=== PATIENT | male | born 1950 | race Caucasian/White ===

== ENCOUNTER 2017-09-28 18:29 | Emergency (ER) | payer MEDICARE, BC ==
[~2017-09-28] VITALS: Ht 180.3 cm; Wt 109.1 kg
[2017-09-28 18:36] VITALS: TEMP 98.2
[2017-09-28 18:43] LABS: BASO # 0.1 (0.0-0.2); BASO % 0.5 % (0.0-2.0); EOS # 0.8 (0.0-0.7); EOS % 7.5 % (0-4.0); GRAN # 5.2 (1.4-6.5); GRAN % 51.4 % (42.2-75.2); HEMATOCRIT 39.4 % (42.0-52.0); HEMOGLOBIN 13.5 g/dl (13.5-18.0); LYMPH % 30.2 % (20.0-51.0); MEAN CELL VOLUME 83 fl (80.0-100.0); MEAN CORPUSCULAR HEMOGLOBIN 28 pg (27.0-31.0); MEAN CORPUSCULAR HGB CONC 34 g/dl (33.0-37.0); MEAN PLATELET VOLUME 10.2 fl (7.4-10.4); MONO # 0.9 (0.1-0.6); PLATELET COUNT 150 K/mm3 (130-400); RED BLOOD COUNT 4.76 M/mm3 (4.20-5.60)
[2017-09-28 18:54] LABS: ADJUSTED CALCIUM 9.6 mg/dL (8.4-10.2); BILIRUBIN,TOTAL 0.4 mg/dL (0.0-1.0); CALCIUM 9.6 mg/dL (8.4-10.2); CREATININE, serum 0.9 mg/dL (0.66-1.25); PARTIAL THROMBOPLASTIN TIME 25.9 SECONDS (26.0-37.0); POTASSIUM 4.2 mmol/L (3.4-5.0); TOTAL PROTEIN 7.1 gm/dL (6.4-8.2)
[2017-09-28 19:06] LABS: TROPONIN-I 0.16 ng/mL (0.000-0.034)
[2017-09-28 20:40] VITALS: BP 169/103; PULSE 97
== END 2017-09-28 20:35 | disposition short-term general hospital (02) ==
LOC: COL.ER 18:29
PROVIDERS: Emergency Medicine
DX: R79.1 Abnormal coagulation profile (principal); R55 Syncope and collapse; I25.10 Atherosclerotic heart disease of native coronary artery without angina pectoris; I25.2 Old myocardial infarction; E11.9 Type 2 diabetes mellitus without complications; F17.220 Nicotine dependence, chewing tobacco, uncomplicated; Z87.891 Personal history of nicotine dependence; Z95.5 Presence of coronary angioplasty implant and graft
CPT/HCPCS: J2270

== ENCOUNTER 2018-01-18 14:47 | Outpatient (RCR) | payer MEDICARE, BC | END 2018-01-22 | disposition home or self-care (01) | LOC: COL.CR | DX: Z48.812 Encounter for surgical aftercare following surgery on the circulatory system (principal); Z95.5 Presence of coronary angioplasty implant and graft ==

== ENCOUNTER 2018-01-30 14:06 | Outpatient (RCR) | payer MEDICARE, BC | END 2018-02-04 08:40 | disposition home or self-care (01) | LOC: COL.CR 14:06 | DX: Z48.812 Encounter for surgical aftercare following surgery on the circulatory system (principal); Z95.1 Presence of aortocoronary bypass graft ==

== ENCOUNTER 2018-06-05 14:25 | Outpatient (RCR) | payer SELFPAY | END 2018-06-09 | disposition home or self-care (01) | LOC: COL.CR | DX: Z02.9 Encounter for administrative examinations, unspecified (principal) ==

== ENCOUNTER 2018-07-22 13:24 | Outpatient (RCR) | payer SELFPAY | END 2018-09-10 | disposition home or self-care (01) | LOC: COL.CR | DX: Z02.89 Encounter for other administrative examinations (principal) ==

== ENCOUNTER 2019-12-25 13:23 | Emergency (ER) | payer MEDICARE, BC ==
[~2019-12-25] VITALS: Ht 182.9 cm; Wt 118.2 kg
[2019-12-25 13:44] VITALS: TEMP 97.9
[2019-12-25] MEDS ORDERED: CEPHALEXIN500 M1 PO (16:08)
[2019-12-25 16:20] VITALS: BP 150/96; PULSE 76
== END 2019-12-25 16:20 | disposition home or self-care (01) ==
LOC: COL.ER 13:23
DX: S81.811A Laceration without foreign body, right lower leg, initial encounter (principal); I25.10 Atherosclerotic heart disease of native coronary artery without angina pectoris; E11.40 Type 2 diabetes mellitus with diabetic neuropathy, unspecified; F17.210 Nicotine dependence, cigarettes, uncomplicated; Z95.9 Presence of cardiac and vascular implant and graft, unspecified; W26.8XXA Contact with other sharp object(s), not elsewhere classified, initial encounter; Y92.009 Unspecified place in unspecified non-institutional (private) residence as the place of occurrence of the external cause

== ENCOUNTER → 2020-06-17 | Outpatient (CLI) | payer MEDICARE, BC ==
[~2020-06-17] MED LIST: CEPHALEXIN500 M1 PO
== END ==
LOC: ZCOL.LAB 16:47
DX: L97.411 Non-pressure chronic ulcer of right heel and midfoot limited to breakdown of skin (principal)

== ENCOUNTER 2020-08-05 13:13 | Inpatient (IN) | payer MEDICARE, BC ==
[~2020-08-05] VITALS: Ht 182.9 cm; Wt 118.2 kg
[2020-08-05 14:14] LABS: MEAN CELL VOLUME 84 fl (80.0-100.0); MEAN CORPUSCULAR HEMOGLOBIN 29 pg (27.0-31.0); MEAN CORPUSCULAR HGB CONC 34 g/dl (33.0-37.0); MEAN PLATELET VOLUME 9.4 fl (7.4-10.4); PLATELET COUNT 289 K/mm3 (130-400); RED BLOOD COUNT 3.83 M/mm3 (4.20-5.60); REDCELL DISTRIBUTION WIDTH-CV 12.5 % (11.5-14.5)
[2020-08-05 14:20] LABS: HEMATOCRIT 32.2 % (42.0-52.0)
[2020-08-05 14:28] LABS: ALBUMIN 3.6 gm/dL (3.5-5.0); BILIRUBIN,TOTAL 0.6 mg/dL (0.0-1.0); CALCIUM 8.8 mg/dL (8.4-10.2); CREATININE, serum 1.54 (0.66-1.25); POTASSIUM 4.6 mmol/L (3.4-5.0); TOTAL PROTEIN 7.3 gm/dL (6.4-8.2)
[2020-08-05 14:45] LABS: ERYTHROCYTE SEDIMENTATION RATE 98 mm/hr (0-30)
[2020-08-05 14:50] LABS: C-REACTIVE PROTEIN 17.7 mg/dL (0.0-0.9)
[2020-08-05 14:55] LABS: BAND 1 % (0-10); LYMPHOCYTE 13 % (20.0-51.0); NEUTROPHILS 71 % (42.0-75.2)
[2020-08-05 14:56] LABS: PLATELET ESTIMATE NORMAL (NORMAL)
[2020-08-05] MEDS ORDERED: LASIX 20MG TABL20 MG PO (15:03)
[2020-08-05] MEDS ORDERED: NORCO 325 MG-51 TAB PO (15:04)
[2020-08-05] MEDS ORDERED: CIPRO 500MG TA500 MG PO ×2 (15:04→16:20)
[2020-08-05] MEDS ORDERED: GLUCOPHAGE500 MG/TAB PO (15:04)
[2020-08-05] MEDS ORDERED: TRULICITY0.75 MG/0. SQ (15:05)
[2020-08-05] MEDS ORDERED: LANTUS100 U/ML SQ (15:05)
[2020-08-05] MEDS ORDERED: LEXAPRO 10MG10 MG PO (15:06)
[2020-08-05] MEDS ORDERED: NEURONTIN300 MG/CAP PO (15:06)
[2020-08-05] MEDS ORDERED: MIRAPEX0.5 MG PO (15:07)
[2020-08-05] MEDS ORDERED: ACCUPRIL20TAB PO (15:07)
[2020-08-05] MEDS ORDERED: NOVOLOG 100U100 U/M1 SQ (15:07)
[2020-08-05] MEDS ORDERED: TOPROL XL 50MG50 MG PO (15:07)
[2020-08-05] MEDS ORDERED: ASPIRIN 32325 MG/TAB PO (15:17)
[2020-08-05] MEDS ORDERED: NITROSTAT0.4 MG/TAB SL (15:18)
[2020-08-05] MEDS ORDERED: IBU600 MG PO (15:19)
[2020-08-05] MEDS ORDERED: FISH OIL1000 MG PO (15:20)
--- NOTE | 2020-08-05 16:34 | NUR ---
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 Loading dose: 1.5 grams Maintenance dose: 1.5 grams every 12 hours Trough goal: 15-20 ug/mL
--- NOTE | 2020-08-05 17:12 | NUR ---
Patient arrived to the floor at this time. He is alert and oriented. No pain at this time. IV site is CD&I, abx from ER finishing at this time. Wound is not wrapped and is dripped red fluid at time of arrival. Ortho was able to see patient and wrap the wound. Patient is aware of his POC. Medication list was completed in the ER. Patient is aware to call for SB assist to the restroom as as a precaution due to the location of the wound on his foot. Will continue to monitor. Call light is in reach.
[2020-08-05 17:26] VITALS: BP 141/78; PULSE 82; TEMP 98.3
[2020-08-05 17:28] VITALS: BP 141/78; PULSE 82; TEMP 98.3
[2020-08-05 19:25] VITALS: BP 136/53; PULSE 77; TEMP 101.6
--- NOTE | 2020-08-05 20:00 | NUR ---
PATIENT DENIES ANY PAIN TO RIGHT FOOT, DENIES CHEST PAIN/SHORTNESS OF BREATH. IVF INFUSING WITH NO PROBLEMS.
--- NOTE | 2020-08-05 20:20 | NUR ---
RECEIVED CHANGE OF SHIFT REPORT FROM DAY SHIFT NURSEREJI. PATIENT RESTING IN BED WITH NO C/O REPORTED. IVF INFUSING WITH NO PROBLEMS.
[2020-08-05 21:32] VITALS: TEMP 99.8
--- NOTE | 2020-08-05 22:45 | NUR ---
PATIENT STATES HE TAKES HIS LEXAPRO AT [facility], SEE eMAR FOR MEDS GIVEN. PATIENT CALLED TO CLARIFY WHEN HE TAKES HIS LEXAPRO, CLARIFIED HE TAKES 1200MG GABAPENTIN AND STATES HE DOES NOT WANT TO TAKE [facility] SUB[facility] FOR HOME INSULIN- LANTUS. WANTS TO BRING IN LANTUS FOR PATIENT TO TAKE WHILE IN THE HOSPITAL, ALSO WANTS TO MAKE SURE PATIENT'S PAST CREAT LEVEL ARE MADE AVAILABLE TO HOSPITAL PROVIDERS SINCE PATIENT IS NOT TAKING ACCUPRIL. IVF INFUSING WITH NO PROBLEMS. DENIES C/O PAIN AT THIS TIME.
[2020-08-05 23:38] VITALS: BP 120/50; PULSE 72; TEMP 99.5
--- NOTE | 2020-08-06 03:27 | NUR ---
PATIENT REQUEST BENADRYL TO BE GIVEN PRIOR TO VANCOMYCIN IV MED. INFORMED DIOMEDES ABREU OF PATIENT'S REQUEST, PREVIOUS RESPONSE TO VANCO ADMIN IN ER (C/O ITCHING, NO RASH) WITH PROVIDER'S ORDERS FOR BENADRYL GIVEN AND RECOMMENDED THAT IV VANCO INFUSION BE CUT IN HALF FOR ADMIN RATE.
[2020-08-06 03:34] VITALS: BP 141/61; PULSE 75; TEMP 97.7
--- NOTE | 2020-08-06 07:06 | NUR ---
CHANGE OF SHIFT REPORT GIVEN TO DAY SHIFT NURSEREJI. PATIENT RESTING QUIETLY IN BED DURING REPORT.
[2020-08-06 07:12] LABS: HEMATOCRIT 31.7 % (42.0-52.0); HEMOGLOBIN 10.6 g/dl (13.5-18.0); MEAN CELL VOLUME 86 fl (80.0-100.0); MEAN CORPUSCULAR HEMOGLOBIN 29 pg (27.0-31.0); MEAN CORPUSCULAR HGB CONC 33 g/dl (33.0-37.0); MEAN PLATELET VOLUME 9.8 fl (7.4-10.4); PLATELET COUNT 292 K/mm3 (130-400); RED BLOOD COUNT 3.69 M/mm3 (4.20-5.60); REDCELL DISTRIBUTION WIDTH-CV 12.7 % (11.5-14.5)
[2020-08-06 07:26] LABS: CALCIUM 8.6 mg/dL (8.4-10.2); CREATININE, serum 1.36 (0.66-1.25); POTASSIUM 4.6 mmol/L (3.4-5.0)
[2020-08-06 07:38] VITALS: BP 143/56; PULSE 74; TEMP 98.5
[2020-08-06 07:52] LABS: BAND 1 % (0-10); EOSINOPHIL 2 % (0-4); LYMPHOCYTE 14 % (20.0-51.0); NEUTROPHILS 75 % (42.0-75.2); PLATELET ESTIMATE NORMAL (NORMAL)
[2020-08-06 07:53] LABS: HYPOCHROMIA 1+
--- NOTE | 2020-08-06 08:04 | NUR ---
Assessment complete. Patient sitting up in bed about to go down for MRI at this time. Denies pain or discomfort. States that he feels fine. He is aware of his POC at this time. IV site is CD&I, IV vanc paused for MRI at this time. Foot remains wrapped from ortho at this time, will replace dressing when he returns. No other needs were expressed at this time. Call light is in reach.
[2020-08-06 11:03] VITALS: BP 137/54; PULSE 73; TEMP 98
[2020-08-06 16:29] VITALS: BP 153/67; PULSE 71; TEMP 98.3
--- NOTE | 2020-08-06 17:52 | NUR ---
Patient was unhappy he was able to go home and does not like the recommendations he recieved from his ortho consult. He is aware of his POC and that the cultures will tell which abx he needs in order to be effective in treatment. was at the bedside most of the day. Minimal complaints from patient other than the food and his wishes to leave. IV site remains intact. Right heel wound was redressed, drainage saturated through to the ABD. NS flush was used to remove 4x4s from open wound. Pt tolerated well. No other needs. Call light is inr each.
[2020-08-06 19:01] VITALS: BP 150/50; PULSE 75; TEMP 98.4
--- NOTE | 2020-08-06 22:12 | NUR ---
Pt resting in bed, assessment completed. meds given per DEC. heart sounds are regular and normal, lung sounds are clear. pt denies pain, chest pain or shortness of breath. alert and oriented, independent in room. right heel wound is dressed, day shift nurse reported that dressing was changed late afternoon. no other needs at this time.
[2020-08-06 23:35] VITALS: BP 125/79; PULSE 75; TEMP 98.9
[2020-08-07 04:19] VITALS: BP 165/68; PULSE 70; TEMP 98.4
--- NOTE | 2020-08-07 05:33 | NUR ---
pt sleeping in bed most of the night, independent in room. pt denies any pain. right heel wound dressing stayed intact, not changed this shift due to being changed late in the day yesterday. no other needs at this time, will continue to monitor.
[2020-08-07 06:51] LABS: BASO % 0.3 % (0.0-2.0); EOS # 0.3 (0.0-0.7); EOS % 2.6 % (0-4.0); GRAN % 78.2 % (42.2-75.2); HEMOGLOBIN 10.6 g/dl (13.5-18.0); LYMPH # 1.2 (1.2-3.4); LYMPH % 9.5 % (20.0-51.0); MEAN CELL VOLUME 86 fl (80.0-100.0); MEAN CORPUSCULAR HEMOGLOBIN 28 pg (27.0-31.0); MEAN CORPUSCULAR HGB CONC 33 g/dl (33.0-37.0); MEAN PLATELET VOLUME 9.7 fl (7.4-10.4); MONO # 1.1 (0.1-0.6); MONO % 8.8 % (1.7-9.3); PLATELET COUNT 297 K/mm3 (130-400); RED BLOOD COUNT 3.73 M/mm3 (4.20-5.60); REDCELL DISTRIBUTION WIDTH-CV 12.7 % (11.5-14.5)
[2020-08-07 06:52] LABS: HEMATOCRIT 31.9 % (42.0-52.0)
[2020-08-07 06:56] LABS: CALCIUM 8.7 mg/dL (8.4-10.2); CREATININE, serum 1.12 (0.66-1.25); POTASSIUM 4.2 mmol/L (3.4-5.0)
--- NOTE | 2020-08-07 07:28 | NUR ---
PATIENT AWAKE IN BED. HE ASKED FOR WATER I INFORMED HIM THAT HE WAS NPO AND HE STATES NOTHING IS HAPPENING TODAY AND HE WANTS WATER.
[2020-08-07 08:49] VITALS: BP 143/80; PULSE 68; TEMP 98.2
--- NOTE | 2020-08-07 09:30 | NUR ---
PATIENT ASSESSMENT COMPLETED. HE IS SITTING UP AT THE SIDE OF THE BED WITH AT BEDSIDE. DENIES ANY PAIN. RIGHT FOOT DRESSING INTACT. NO DRAINAGE NOTED ON THE OUTSIDE OF DRESSING.
--- NOTE | 2020-08-07 10:30 | NUR ---
PATIENT IV WAS RESTARTED IN THE RIGHT FOREARM. TOLERATES WELL
--- NOTE | 2020-08-07 11:00 | NUR ---
DRESSING CHANGED BY DR. RENEE. MODERATE ABOUT OF BROWN DRAINAGE NOTED ON THE OLD DRESSING. ALONG BEDSIDE ALSO.
[2020-08-07 11:50] VITALS: BP 171/79; PULSE 65; TEMP 98.2
[2020-08-07 16:12] VITALS: BP 158/64; PULSE 69; TEMP 98.1
[2020-08-07 19:00] VITALS: BP 155/66; PULSE 71; TEMP 98.4
--- NOTE | 2020-08-07 21:26 | NUR ---
pt alert and oriented, sitting up in bed. assessment completed and medications given per DEC. pt refused wound dressing change tonight, states that he wants to leave it until the morning. pt denies pain, lung sounds are clear and heart sonds are regular. discoloration in both lower legs, edema noted in the right foot. no other needs at this time, will continue to monitor.
[2020-08-07 23:19] VITALS: BP 127/49; PULSE 70; TEMP 98.3
[2020-08-08 04:00] VITALS: BP 133/58; PULSE 68; TEMP 98.1
--- NOTE | 2020-08-08 05:49 | NUR ---
pt slept in bed most of the night, called for any needs. medications given per DEC, pt refused wound dressing change and stated that he wanted to leave it until the morning. no other needs at this time.
--- NOTE | 2020-08-08 06:52 | NUR ---
PATIENT SLEEPING IN BED. NO SIGNS OF DISTRESS NOTED
[2020-08-08 07:05] VITALS: BP 150/70; PULSE 65; TEMP 98.6
[2020-08-08 07:12] LABS: BASO # 0.1 (0.0-0.2); BASO % 0.4 % (0.0-2.0); EOS # 0.3 (0.0-0.7); EOS % 2.3 % (0-4.0); GRAN # 10.5 (1.4-6.5); GRAN % 75.4 % (42.2-75.2); HEMOGLOBIN 11.1 g/dl (13.5-18.0); LYMPH # 1.8 (1.2-3.4); LYMPH % 12.7 % (20.0-51.0); MEAN CELL VOLUME 85 fl (80.0-100.0); MEAN CORPUSCULAR HEMOGLOBIN 28 pg (27.0-31.0); MEAN CORPUSCULAR HGB CONC 33 g/dl (33.0-37.0); MEAN PLATELET VOLUME 9.9 fl (7.4-10.4); MONO # 1.2 (0.1-0.6); MONO % 8.6 % (1.7-9.3); PLATELET COUNT 343 K/mm3 (130-400); RED BLOOD COUNT 3.93 M/mm3 (4.20-5.60); REDCELL DISTRIBUTION WIDTH-CV 12.5 % (11.5-14.5)
[2020-08-08 07:15] LABS: HEMATOCRIT 33.2 % (42.0-52.0)
[2020-08-08 07:26] LABS: CALCIUM 8.9 mg/dL (8.4-10.2); CREATININE, serum 1.09 (0.66-1.25); POTASSIUM 4.3 mmol/L (3.4-5.0)
--- NOTE | 2020-08-08 08:54 | NUR ---
PATIENT ASSESSMENT COMPLETED. SITTING UP AT THE SIDE OF THE BED. BREAKFAST EATTEN. HE GIVES HIMSELF HIS INSULIN SHOTS PER HIS REQUEST. DENIES OTHER NEEDS OR REQUEST
[2020-08-08 11:29] VITALS: BP 151/77; PULSE 68; TEMP 98
[2020-08-08 16:23] VITALS: BP 167/66; PULSE 64; TEMP 97.6
[2020-08-08 19:23] VITALS: BP 142/58; PULSE 65; TEMP 97.4
--- NOTE | 2020-08-08 21:30 | NUR ---
Initial shift assessment done- watching TV, right foot dressing dry and intact-states it was just changed today and states not being changed again today-- VSS, pleasant, will eat a snack of grahmn crackers and peanut butter tonight-
[2020-08-08 23:16] VITALS: BP 136/48; PULSE 71; TEMP 98.7
[2020-08-09 04:48] VITALS: BP 121/55; PULSE 65; TEMP 99.2
--- NOTE | 2020-08-09 05:23 | NUR ---
Quiet night-- did get 2-3 hours of sleep during the night between antibiotics- requesting a diet pepsi,, no other requests
[2020-08-09 07:00] LABS: BASO # 0.1 (0.0-0.2); BASO % 0.5 % (0.0-2.0); EOS # 0.4 (0.0-0.7); EOS % 3.1 % (0-4.0); GRAN # 8.9 (1.4-6.5); GRAN % 74.1 % (42.2-75.2); HEMOGLOBIN 11.1 g/dl (13.5-18.0); LYMPH # 1.3 (1.2-3.4); LYMPH % 10.9 % (20.0-51.0); MEAN CELL VOLUME 84 fl (80.0-100.0); MEAN CORPUSCULAR HEMOGLOBIN 28 pg (27.0-31.0); MEAN CORPUSCULAR HGB CONC 34 g/dl (33.0-37.0); MEAN PLATELET VOLUME 9.4 fl (7.4-10.4); MONO # 1.3 (0.1-0.6); MONO % 10.4 % (1.7-9.3); PLATELET COUNT 376 K/mm3 (130-400); RED BLOOD COUNT 3.94 M/mm3 (4.20-5.60); REDCELL DISTRIBUTION WIDTH-CV 12.4 % (11.5-14.5)
[2020-08-09 07:02] LABS: CALCIUM 8.8 mg/dL (8.4-10.2); CREATININE, serum 1.07 (0.66-1.25); POTASSIUM 4.6 mmol/L (3.4-5.0)
[2020-08-09 07:12] LABS: HEMATOCRIT 33.1 % (42.0-52.0)
[2020-08-09 07:34] VITALS: BP 156/67; PULSE 65; TEMP 98.1
--- NOTE | 2020-08-09 08:18 | NUR ---
(late entry 08/06) Vulnerability Researcher met with the patient and the patient's , Constance to complete intake. The patient lives in [place] with Constance. The patient has a CPAP and receives supplies from [facility]. The patient's PCP is Dr. Montalvo and patient receives medications from [facility] with no difficulties. The patient does not have advanced directives in the EMR but states they are complete and designate, Constance. The patient is independent and plans to return home at discharge. There are no additional needs at this time.
--- NOTE | 2020-08-09 09:25 | NUR ---
Patient alert and oriented, denies any pain. Right heel have a wound with dressing on it. Patient express his desire to be discharged home today. provided education on medication and wound care.
--- NOTE | 2020-08-09 10:55 | NUR ---
First visit from the salvage inspector. Retort Engineer prayed with patient and . No other needs right now.
[2020-08-09] MEDS ORDERED: MAXIPIME2 GM IV ×2 (11:01→11:37)
[2020-08-09 11:28] VITALS: BP 157/67; PULSE 63; TEMP 97.6
--- NOTE | 2020-08-09 15:07 | NUR ---
Profile Mill Operator Tape Control attended clinical rounds with the team. The patient is to discharge home today, 08/09. The patient is needing IV antibiotics, Cefepime (Maxipime) twice a day. He will also need a knee walker. DAI met with the patient and the patient's , Constance to discussed the options of home with home health, and a DME company to provide the Maxipime or use the Express here at this hospital for administration. They chose home with home health and choosing a DME company. 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 They would like to return home with home health and a DME company providing the Maxipime. SW presented Medicare[employer]'s list of home health agencies that serve [place]. The patient and Constance chose [facility]Note 3[facility] and [facility] to provide the Maxipime. Referrals faxed. [facility] can accept the patient for PT/OT/Nursing/Wound Care/PICC dressing changes/weekly labs. [facility] can accommodate the patient and provide his antibiotic. Jacy from [facility] visited the patient and Constance. Regarding the knee walker. DAI contacted [facility], [facility], [facility], and [facility] and [facility] do not bill insurance but do have a monthly charge for rentals, $55 and $75 respectively. [facility] and [facility] does not have any available. The patient and Constance were agreeable to renting with [facility]. Their daughter Lizet Lovell will pick it up. DAI faxed referral. DAI collaborated the above information with the patient's team.
--- NOTE | 2020-08-09 16:33 | NUR ---
right heel wound redressed with Xerofoam, gauze, gauze roll, and joey wrap. Patient tolerate dressing change well. WBC 12.1. patient discharged with new orders for: Cefepime, homehealth orders, blood work appointment and future appointment with Internal medicine and infectious disease. Picc line was placed today. Patient mentioned that ISREAL Novak discontinued INT on right hand. Patient remained Afebrile at discharge. Discharge home with spouse.
== END 2020-08-09 16:00 | disposition home health service (06) | DRG 872 ==
LOC: COL.ER 13:13 → MEDICAL 14:51
PROVIDERS: Internal Medicine Pulmonary Disease; Physician Assistant; ADMIT Hospitalist
PROC: 02HV33Z Insertion of Infusion Device into Superior Vena Cava, Percutaneous Approach (ICD-10-PCS; principal; 2020-08-09)
DX: A41.9 Sepsis, unspecified organism (principal); N17.9 Acute kidney failure, unspecified; E87.1 Hypo-osmolality and hyponatremia; M86.8X8 Other osteomyelitis, other site; F32.9 Major depressive disorder, single episode, unspecified; E66.9 Obesity, unspecified; I25.10 Atherosclerotic heart disease of native coronary artery without angina pectoris; E11.42 Type 2 diabetes mellitus with diabetic polyneuropathy; E11.69 Type 2 diabetes mellitus with other specified complication; D64.9 Anemia, unspecified; Z95.0 Presence of cardiac pacemaker; Z95.1 Presence of aortocoronary bypass graft
CPT/HCPCS: OP; 99233-AI; 99239; C1751; G0378; J0692; J1200; J1644; J1815; J2543; J3370; J7030; J7050

== ENCOUNTER 2020-08-26 20:44 | Inpatient (IN) | payer MEDICARE, BC ==
[~2020-08-26] VITALS: Ht 182.9 cm; Wt 115.0 kg
[~2020-08-26 20:44] MED LIST changes: +ACCUPRIL20TAB PO; +ASPIRIN 32325 MG/TAB PO; +CIPRO 500MG TA500 MG PO; +FISH OIL1000 MG PO; +GLUCOPHAGE500 MG/TAB PO; +IBU600 MG PO; +LANTUS100 U/ML SQ; +LASIX 20MG TABL20 MG PO; +LEXAPRO 10MG10 MG PO; +MAXIPIME2 GM IV; +MIRAPEX0.5 MG PO; +NEURONTIN300 MG/CAP PO; +NITROSTAT0.4 MG/TAB SL; +NORCO 325 MG-51 TAB PO; +NOVOLOG 100U100 U/M1 SQ; +TOPROL XL 50MG50 MG PO; +TRULICITY0.75 MG/0. SQ
[2020-08-26 22:14] LABS: BASO # 0.1 (0.0-0.2); BASO % 0.4 % (0.0-2.0); EOS # 0.1 (0.0-0.7); EOS % 0.5 % (0-4.0); GRAN % 88.6 % (42.2-75.2); LYMPH # 0.6 (1.2-3.4); MEAN CELL VOLUME 84 fl (80.0-100.0); MEAN CORPUSCULAR HEMOGLOBIN 28 pg (27.0-31.0); MEAN CORPUSCULAR HGB CONC 33 g/dl (33.0-37.0); MEAN PLATELET VOLUME 9.6 fl (7.4-10.4); MONO # 1.4 (0.1-0.6); MONO % 6.8 % (1.7-9.3); PLATELET COUNT 240 K/mm3 (130-400); RED BLOOD COUNT 4.28 M/mm3 (4.20-5.60); REDCELL DISTRIBUTION WIDTH-CV 13.4 % (11.5-14.5)
[2020-08-26 22:18] LABS: INR 1.3 (0.8-3.0); PROTHROMBIN TIME 14.2 SECONDS (9.7-12.8)
[2020-08-26 22:21] LABS: PARTIAL THROMBOPLASTIN TIME 30.4 SECONDS (26.0-37.0)
[2020-08-26 22:24] LABS: ALBUMIN 3.8 gm/dL (3.5-5.0); BILIRUBIN,TOTAL 0.5 mg/dL (0.0-1.0); C-REACTIVE PROTEIN 1.3 mg/dL (0.0-0.9); CALCIUM 9.3 mg/dL (8.4-10.2); CREATININE, serum 1.16 (0.66-1.25); POTASSIUM 5.4 mmol/L (3.4-5.0); TOTAL PROTEIN 7.8 gm/dL (6.4-8.2)
[2020-08-26] MEDS ORDERED: MOTRIN 200200 MG/TAB PO (23:31)
[2020-08-27 00:38] VITALS: BP 124/56; PULSE 79; TEMP 98.5
[2020-08-27] MEDS ORDERED: FLAGYL500 MG PO (01:29)
[2020-08-27] MEDS ORDERED: GLUCOPHAGE XR500 M1 PO (01:33)
[2020-08-27 03:34] VITALS: BP 125/62; PULSE 81; TEMP 97.9
--- NOTE | 2020-08-27 06:32 | NUR ---
Pt came through ER to the floor around [place]. Pt had a oozing wound while coming to the floor, reinforced the dressing, placed his leg on pillow which could help floating his heel. Pt had diminished heart and lung sound. No N/V/D/pain, SOA as per pt. Meds provided as per MAR. Pt is settled on his bed, call light is on reach, no further needs at this time.
--- NOTE | 2020-08-27 06:36 | NUR ---
Pt slept on and off through out the night. Changed pillow and bed cover couple of times through out the night due to bleeding from his wound. No further needs at this time.
[2020-08-27 07:15] LABS: CREATININE, serum 1.04 (0.66-1.25); POTASSIUM 5.2 mmol/L (3.4-5.0)
[2020-08-27 07:17] LABS: HEMOGLOBIN 11.8 g/dl (13.5-18.0); MEAN CELL VOLUME 84 fl (80.0-100.0); MEAN CORPUSCULAR HEMOGLOBIN 28 pg (27.0-31.0); MEAN CORPUSCULAR HGB CONC 33 g/dl (33.0-37.0); MEAN PLATELET VOLUME 9.8 fl (7.4-10.4); PLATELET COUNT 220 K/mm3 (130-400); RED BLOOD COUNT 4.22 M/mm3 (4.20-5.60); REDCELL DISTRIBUTION WIDTH-CV 13.5 % (11.5-14.5)
[2020-08-27 07:18] LABS: HEMATOCRIT 35.4 % (42.0-52.0)
[2020-08-27 07:48] VITALS: BP 129/60; PULSE 86; TEMP 99
[2020-08-27 08:36] LABS: BAND 17 % (0-10); LYMPHOCYTE 8 % (20.0-51.0); NEUTROPHILS 67 % (42.0-75.2); PLATELET ESTIMATE NORMAL (NORMAL)
--- NOTE | 2020-08-27 08:50 | NUR ---
PICC intact right upper arm with sterile dressing change done with insertion site cleansed with chloraprep x 1, chlorhexidine impregnated disk applied, skin prep, stat lock, and tegaderm applied. no signs or symptoms of IV complications noted. no concerns voiced.
--- NOTE | 2020-08-27 09:50 | NUR ---
Initial visit; Patient indisposed, Unit Control Worker spoke briefly with his letting her know of the availability of spiritual care and offered God's blessings.
[2020-08-27 11:28] LABS: CALCIUM 8.6 mg/dL (8.4-10.2); CREATININE, serum 1.13 (0.66-1.25); POTASSIUM 5.6 mmol/L (3.4-5.0)
[2020-08-27 12:23] VITALS: BP 139/68; PULSE 82; TEMP 99
--- NOTE | 2020-08-27 14:23 | NUR ---
Primary nurse was assisted with [phone] patient care by [employer] student Kate De La Rosa and [employer] instructor Marcelle Bach RN-.
[2020-08-27 15:15] LABS: CALCIUM 8.7 mg/dL (8.4-10.2); CREATININE, serum 1.11 (0.66-1.25); POTASSIUM 5.2 mmol/L (3.4-5.0)
--- NOTE | 2020-08-27 15:35 | NUR ---
DAI met with the patient and his , Constance (ph#[phone]), to discuss discharge plan. The patient lives in [place] with Constance. He reports independence with ADLs and has a cane and walker. He was recently discharged from the hospital on 08/09 and returned home with his and home health services for mcc/wound care/PT/OT through [facility] and IV antibiotics through [facility]. The patient and Constance report that he was to receive to the IV antibiotics until 09/20. DAI contacted and faxed updates to Violet at [facility]. The patient's PCP is Dr. Pierce Montalvo and he receives his medications from [facility]. He reports no difficulties obtaining his meds. The patient does not have a DPOA-HC in EMR, but he states that he does have one completed and that it designates his . The patient has a right calcaneus open fracture. Ortho was consulted and recommend a BKA. The patient and his report that they do plan on pursuing the BKA. DAI informed the patient and Constance of how post-acute rehab is normally recommended upon discharge. The patient and Constance verbalized understanding and report that they would be agreeable to this. DAI informed them of the different SNF and inpatient rehab options. The patient and Constance would like to think about the options for awhile, before making a decision. DAI will need to follow up with the patient and his this weekend on preferences for post-acute rehab.
[2020-08-27 17:43] VITALS: BP 141/68; PULSE 88; TEMP 99.2
[2020-08-27 18:18] LABS: CALCIUM 8.8 mg/dL (8.4-10.2); CREATININE, serum 1.16 (0.66-1.25); POTASSIUM 5.3 mmol/L (3.4-5.0)
--- NOTE | 2020-08-27 18:50 | NUR ---
Pt resting in the room today, has whitehead some C/O pain, medications given for pain relief with good results. Wound redressed by ortho physician this afternoon. VS have remained stable today.
--- NOTE | 2020-08-27 19:10 | NUR ---
Pt was setting on his bedside when this nurse went for bedside report. Pt seems tired, wound dressing on. No further needs at this time.
[2020-08-27 20:45] VITALS: BP 141/64; PULSE 82; TEMP 99.4
[2020-08-27 21:57] LABS: CALCIUM 8.8 mg/dL (8.4-10.2); CREATININE, serum 1.19 (0.66-1.25)
[2020-08-28] VITALS (8 sets, daily range): BP systolic 14–169; BP diastolic 37–73; PULSE 76–89; TEMP 97.7–98.8
--- NOTE | 2020-08-28 01:49 | NUR ---
Pt assessment completed and charted, alert, oriented, roomair. Meds provided as per DEC, tolerated well. Pt was upset for not getting food all day. Called Lizet/hopsitalist and changed the diet order to AHA, provided food to the pt. Pt is settled on his bed, calll light on reach. No further needs at this time.
--- NOTE | 2020-08-28 06:12 | NUR ---
Pt had uneventful night, slept through out the night. Morning meds provided as per DEC. No further needs at this time.
--- NOTE | 2020-08-28 07:25 | NUR ---
Radiology notified of ECHO.
--- NOTE | 2020-08-28 09:42 | NUR ---
Pt assessment complete. Pt is sitting up on the side of the bed eating breakfast. A/O x4. His breathing is even and unlabored on RA. Pt denies SOB. Pain 12/29 to RLE. Denies need for pain medication at this time. Dressing in place to RLE. IVF infusing into PICC of RUE. No needs at this time. Call light within reach.
--- NOTE | 2020-08-28 17:31 | NUR ---
Pt had uneventful day. Did have some pain to RLE. PRN pain medications administered. BS elevated earlier in the day, D5NS stopped since then. POC discussed with patient and his . No needs at this time. Call light within reach.
--- NOTE | 2020-08-28 19:30 | NUR ---
Report received, assumed care for varnish blender. Assessment complete. A&Ox3. VS stable. C/O pain to right foot-described as throbbing-dilaudid given per dr order. Denies nausea/shortness of breath. Plan of care discussed for this shift to include antibiotics/pain control/calling for needs. Verbalizes understanding/denies questions/concerns. Call light in reach. Will monitor.
--- NOTE | 2020-08-28 21:30 | NUR ---
Called with c/o pain to right foot-rating pain 6/10 on pain scale-described as constant ache with intermittent throbbing. Conifer given per dr quiroga.
[2020-08-29] VITALS (7 sets, daily range): BP systolic 128–162; BP diastolic 51–80; PULSE 66–82; TEMP 97.8–98.9
--- NOTE | 2020-08-29 04:00 | NUR ---
Rested well this shift. Good pain control with PO hydrocodone with one dose of dilaudid for break through pain. Denied nausea/shortness of breath. VS remained stable. Voiding without difficulty. Denies current needs. Call light in reach. Will monitor.
--- NOTE | 2020-08-29 10:08 | NUR ---
pt assessment complete. Pt is sitting up in bed upon entry, he is A/O x4. His breathing is even and unlabored on RA. Pt denies SOB. No N/V. Pain tolerable to RLE at this time. Abx infusing into RUE without issues. No needs at this time. Call light within reach.
--- NOTE | 2020-08-29 14:30 | NUR ---
SW called patient's to speak about post acute rehab preferences. Constance provided that family discussed patient staying at the hospital for rehab. also stated that she is aware that the surgery is tomorrow and would like to have further discussion tomorrow about the steps to take. DAI contacted divisional merchandising manager IPR staff to assist with assessment for patient to obtain IPR services. DAI will continue to follow.
--- NOTE | 2020-08-29 16:33 | NUR ---
Tele contacted this nurse stating patient had non sustained 7 beat run of VTACH, pt sitting on side of bed upon entry. Denies chest pain, palpitations or dizziness. Vitals attained and stable. Will continue to monitor.
--- NOTE | 2020-08-29 19:20 | NUR ---
Pt was setting on his bedside watching television when this nurse went for a bedside handover. No further needs at this time.
--- NOTE | 2020-08-29 23:22 | NUR ---
Pt assessment completed and charted, alert, oriented, roomair. Meds provided as per MAR, tolerated well. Pt denies N/V/D, tingling, numbness, SOA, pain at this time. Pt looks stressed. Pt is settled on his bed, call light is on reach. No further needs at this time.
[2020-08-30 03:24] VITALS: BP 170/75; PULSE 66; TEMP 98.4
[2020-08-30 03:40] VITALS: BP 158/62
--- NOTE | 2020-08-30 05:05 | NUR ---
Pt had an uneventful night, slept on and off through out the night. PRN antihypertension meds provided. No further needs at this time.
[2020-08-30 05:17] VITALS: BP 156/60
[2020-08-30 07:03] LABS: HEMATOCRIT 30.1 % (42.0-52.0); HEMOGLOBIN 9.8 g/dl (13.5-18.0); MEAN CELL VOLUME 82 fl (80.0-100.0); MEAN CORPUSCULAR HEMOGLOBIN 27 pg (27.0-31.0); MEAN CORPUSCULAR HGB CONC 33 g/dl (33.0-37.0); MEAN PLATELET VOLUME 10.3 fl (7.4-10.4); PLATELET COUNT 206 K/mm3 (130-400); RED BLOOD COUNT 3.67 M/mm3 (4.20-5.60); REDCELL DISTRIBUTION WIDTH-CV 13.4 % (11.5-14.5)
[2020-08-30 07:16] LABS: CALCIUM 7.8 mg/dL (8.4-10.2); CREATININE, serum 0.82 (0.66-1.25)
[2020-08-30 07:39] LABS: POTASSIUM 6.5 mmol/L (3.4-5.0)
[2020-08-30 07:50] VITALS: BP 163/55; PULSE 70; TEMP 98
--- NOTE | 2020-08-30 08:40 | NUR ---
Patient was on D5W at 75ml/hr. blood glucose 599, K+ 6.5. d5w discontinued, blood glucose check from q6h to q4h. NS 75ml/hr was started. Insulin was administered as order ( levemir 15unit and novolog 14units). Called in infectious disease consult to Dr Raza.
[2020-08-30 10:08] LABS: CALCIUM 8.9 mg/dL (8.4-10.2); CREATININE, serum 0.92 (0.66-1.25)
[2020-08-30 11:57] VITALS: BP 150/82; PULSE 71; TEMP 98
[2020-08-30 14:32] LABS: CALCIUM 9.2 mg/dL (8.4-10.2); CREATININE, serum 0.91 (0.66-1.25); POTASSIUM 4.7 mmol/L (3.4-5.0)
--- NOTE | 2020-08-30 19:15 | NUR ---
Pt was sitting on his bedside when this nurse came for a bedside handover. No further needs at this time.
--- NOTE | 2020-08-30 19:46 | NUR ---
Patient's request home medication Accupril restarted. RN informed LOIS Hinds. Dr rivero, Orthepedic surgeon reschedule patient's Below knee amputation surgery for future date. Patient was informed of the new development. Patient BMP improved. report given to ISREAL Ruggiero
[2020-08-30 19:53] VITALS: BP 147/58; PULSE 76; TEMP 98
[2020-08-31] VITALS (7 sets, daily range): BP systolic 108–180; BP diastolic 53–87; PULSE 65–75; TEMP 97.6–98.2
--- NOTE | 2020-08-31 03:21 | NUR ---
Pt ASSESSMENT completed and charted, alert, oriented, roomair. Meds provided as per DEC, tolerated well. Settled on his bed, call light is on reach. No further needs at this time.
--- NOTE | 2020-08-31 06:01 | NUR ---
Pt had an uneventful night, slept through out the night. Insulin provided q4hr as per sliding scale. No further needs at this time.
[2020-08-31 06:33] LABS: BASO # 0.1 (0.0-0.2); BASO % 0.7 % (0.0-2.0); EOS # 0.3 (0.0-0.7); EOS % 3.5 % (0-4.0); GRAN # 6.4 (1.4-6.5); GRAN % 67.5 % (42.2-75.2); HEMOGLOBIN 10.3 g/dl (13.5-18.0); LYMPH # 1.4 (1.2-3.4); LYMPH % 14.3 % (20.0-51.0); MEAN CELL VOLUME 83 fl (80.0-100.0); MEAN CORPUSCULAR HEMOGLOBIN 27 pg (27.0-31.0); MEAN CORPUSCULAR HGB CONC 33 g/dl (33.0-37.0); MEAN PLATELET VOLUME 10.2 fl (7.4-10.4); MONO # 1.2 (0.1-0.6); MONO % 13.1 % (1.7-9.3); PLATELET COUNT 229 K/mm3 (130-400); REDCELL DISTRIBUTION WIDTH-CV 13.4 % (11.5-14.5)
[2020-08-31 06:51] LABS: ALBUMIN 3.6 gm/dL (3.5-5.0); BILIRUBIN,TOTAL 0.4 mg/dL (0.0-1.0); CREATININE, serum 0.89 (0.66-1.25); MAGNESIUM 1.7 mg/dL (1.6-2.3); POTASSIUM 4.5 mmol/L (3.4-5.0); TOTAL PROTEIN 7.5 gm/dL (6.4-8.2)
[2020-08-31 07:12] LABS: HEMATOCRIT 31.6 % (42.0-52.0)
--- NOTE | 2020-08-31 09:16 | NUR ---
Initial visit; Patient thanked Drop Hammer Operator Helper for looking in on him and offering encouragement and God's blessings.
--- NOTE | 2020-08-31 14:51 | NUR ---
Noted patient's dressing and joey bandage is saturated with exudate. Notified patient's primary nurse.
--- NOTE | 2020-08-31 16:15 | NUR ---
Character Actress followed up with patient and patient's , Constance to review discharge plan. Patient states he should have surgery tomorrow. SW discussed second preference with patient. Patient states he really wants to go to [facility] but is agreeable to have a referral sent to [facility]. SW faxed referral to [facility] and will continue to follow.
--- NOTE | 2020-08-31 18:47 | NUR ---
Patient alert and oriented. complained of pain on his right leg, gave hydrocodone for pain. Patient received scheduled antibiotic. Administered Hydralizine once for SBP 180. Below right knee amputation scheduled for 09/01. visited at bedside today.
--- NOTE | 2020-08-31 21:45 | NUR ---
Patietn assessed at this time. Alert and oriented x 4, and able to make needs known. Reported level 5 pain to right foot, and given PRN Dilaudid as requested for pain. Double lumen PICC to RUE, with dressing CDI. Denies having SOB and dyspnea. LS CTA in upper lobes, diminished in lower. Respirations even and unlabored. HRR. Telemetry: normal sinus. Capillary refill less than 3 seconds. Non-tenting skin turgor. BSAx4. Abdomen soft and non-tender. Uses bedside urinal. Urine clear and yellow. 1+ edema BLE. Purple discoloration to BLE. Dressing to ulcers on right foot CDI. Odor continues. Continues on IV antibiotics per orders. Plan for right BKA tomorrow. Reminded of being NPO after midnight, and voiced understanding. Voices no questions, needs, or concerns at this time. Resting in bed with call light within reach.
[2020-09-01] VITALS (43 sets, daily range): BP systolic 130–171; BP diastolic 60–83; PULSE 61–73; TEMP 97.4–98.5; O2SAT 94–100
--- NOTE | 2020-09-01 06:08 | NUR ---
Patient has signed his consent for right BKA today. Fluids for operation in room. Voices no questions, needs, or concerns at this time. In bed with call light within reach.
[2020-09-01 06:12] LABS: HEMOGLOBIN 10.5 g/dl (13.5-18.0); MEAN CELL VOLUME 84 fl (80.0-100.0); MEAN CORPUSCULAR HEMOGLOBIN 27 pg (27.0-31.0); MEAN CORPUSCULAR HGB CONC 33 g/dl (33.0-37.0); MEAN PLATELET VOLUME 10.1 fl (7.4-10.4); PLATELET COUNT 220 K/mm3 (130-400); RED BLOOD COUNT 3.84 M/mm3 (4.20-5.60); REDCELL DISTRIBUTION WIDTH-CV 13.6 % (11.5-14.5)
[2020-09-01 06:23] LABS: CALCIUM 8.9 mg/dL (8.4-10.2); CREATININE, serum 0.93 (0.66-1.25); MAGNESIUM 1.6 mg/dL (1.6-2.3); POTASSIUM 4.5 mmol/L (3.4-5.0)
[2020-09-01 06:28] LABS: HEMATOCRIT 32.1 % (42.0-52.0)
--- NOTE | 2020-09-01 07:01 | NUR ---
Patient going down to surgery at this time. Report called to [facility] as requested.
[2020-09-01 07:07] LABS: BAND 9 % (0-10); BASOPHIL 1 % (0-2); EOSINOPHIL 4 % (0-4); LYMPHOCYTE 20 % (20.0-51.0); NEUTROPHILS 57 % (42.0-75.2); PLATELET ESTIMATE NORMAL (NORMAL)
--- NOTE | 2020-09-01 08:08 | NUR ---
PATIENT ALREADY TO SURGERY THIS MORNING, NOT PRESENT IN ROOM SO MORNING VITALS NOT TAKEN
--- NOTE | 2020-09-01 11:14 | NUR ---
PT TO ROOM 329 PER BED AFTER SURGERY WITH REPORT FROM JORGE BACH PACU@1040.PT IS A/O X3, LUNGS CTA, BOWEL SOUNDS ACTIVE. IV TO PICC LINE EMMETT. DRESSING TO RIGHT BKA CDI WITH OCCLUSIVE DRESSING TO SURGICAL AREA. HEMOVAC DRAIN WITH MIN RED DRAINAGE.
--- NOTE | 2020-09-01 14:50 | NUR ---
PICC intact right upper arm with sterile dressing change done with insertion site cleansed with chloraprep x 1, chlorhexidine impreganted disk applied, skin prep, stat lock, and tegaderm applied. no signs or symptoms of IV complications noted. no concerns voiced.
--- NOTE | 2020-09-01 17:13 | NUR ---
PTS BLOOD GLUCOSE WAS 561 NOTIFIED LIN MOISE AND LAB FOR VENOUS DRAW.
[2020-09-01 17:37] LABS: CK total - for Isoenzymes 61 U/L (39 - 308)
--- NOTE | 2020-09-01 19:45 | NUR ---
LOIS Hinds notified of critical bedside glucose of 518. New orders received and initiated.
--- NOTE | 2020-09-01 20:00 | NUR ---
Report received assumed care for night shift manager. Assessment complete. A&Ox3. VS stable. Denies pain/nausea/shortness of breath. Dressing to right lower ext-BKA- bulky white dressing/joey-CDI. PICC line to right upper arm flushes without difficulty-good blood return. Denies questions/concerns. Call light in reach. Will monitor.
--- NOTE | 2020-09-01 20:20 | NUR ---
LOIS Hinds notified of critical lab results. New orders received.
[2020-09-01 20:59] LABS: CALCIUM 8.3 mg/dL (8.4-10.2); CREATININE, serum 1.09 (0.66-1.25)
--- NOTE | 2020-09-01 21:22 | NUR ---
Lab notified of STAT lab orders.
--- NOTE | 2020-09-01 21:40 | NUR ---
LOIS Hinds notified of critical lab results. New orders received.
[2020-09-01 21:50] LABS: CALCIUM 8.4 mg/dL (8.4-10.2); CREATININE, serum 1.1 (0.66-1.25); MAGNESIUM 1.7 mg/dL (1.6-2.3); PHOSPHOROUS 4.1 mg/dL (2.5-4.5); POTASSIUM 5.2 mmol/L (3.4-5.0)
--- NOTE | 2020-09-01 22:42 | NUR ---
Report given to ISREAL Maloney in ICU.
--- NOTE | 2020-09-01 23:30 | NUR ---
To ICU 7 via wheelchair at this time. All belongings taken with patient.
--- NOTE | 2020-09-01 23:40 | NUR ---
Arrived to the unit via stretcher; alert and oriented X4. Patient is upset about transfer to ICU to be placed on an insulin drip. Explained to patient that blood glucose can be difficult to manage in a state of infection or with increased stress on the body, such as with a surgery. Did not appear satisfied with this response but allowed RN to obtain glucose check and initiate the insulin drip. Will continue to monitor; Call light left within reach.
[2020-09-02] VITALS (347 sets, daily range): BP systolic 122–150; BP diastolic 58–75; PULSE 66–81; TEMP 97.5–98.8; O2SAT 54–100
[2020-09-02 01:22] LABS: CALCIUM 8.5 mg/dL (8.4-10.2); CREATININE, serum 1.08 (0.66-1.25); POTASSIUM 4.7 mmol/L (3.4-5.0)
[2020-09-02 04:06] LABS: HEMOGLOBIN 10.1 g/dl (13.5-18.0); MEAN CELL VOLUME 82 fl (80.0-100.0); MEAN CORPUSCULAR HEMOGLOBIN 27 pg (27.0-31.0); MEAN CORPUSCULAR HGB CONC 33 g/dl (33.0-37.0); MEAN PLATELET VOLUME 9.6 fl (7.4-10.4); PLATELET COUNT 292 K/mm3 (130-400); REDCELL DISTRIBUTION WIDTH-CV 13.4 % (11.5-14.5)
[2020-09-02 04:11] LABS: HEMATOCRIT 30.2 % (42.0-52.0)
[2020-09-02 04:17] LABS: ALBUMIN 3.5 gm/dL (3.5-5.0); BILIRUBIN,TOTAL 0.4 mg/dL (0.0-1.0); CALCIUM 8.7 mg/dL (8.4-10.2); CREATININE, serum 1.09 (0.66-1.25); MAGNESIUM 1.8 mg/dL (1.6-2.3); POTASSIUM 4.3 mmol/L (3.4-5.0); TOTAL PROTEIN 7.3 gm/dL (6.4-8.2)
[2020-09-02 08:29] LABS: CALCIUM 8.8 mg/dL (8.4-10.2); CREATININE, serum 1.06 (0.66-1.25); POTASSIUM 4.3 mmol/L (3.4-5.0)
--- NOTE | 2020-09-02 11:49 | NUR ---
REPORT CALLED TO ISREAL MANDEL ON SURGICAL FLOOR. MARKUS, ALSO CALLED AT THIS TIME AND UPDATED ON POC.
--- NOTE | 2020-09-02 13:15 | NUR ---
The patient had his BKA yesterday. The patient is to be transferred up to the surgical unit today. SW contacted and updated the patient's , Constance. Constance confirms that their first preference for rehab is [facility] and then [facility]. DAI contacted and faxed updates to Megha at [facility].
--- NOTE | 2020-09-02 19:10 | NUR ---
RECEIVED CHANGE OF SHIFT REPORT FROM DAY SHIFT NURSE. PATIENT RESTING IN BED, REPORTS HAS PAIN FROM RIGHT KNEE DOWN TO STUMP, WITH MALACHI DRSG CDI, HV IN PLACE. TELE IN PLACE, DENIES CHEST PAIN/SHORTNESS OF BREATH AT THIS TIME. DENIES NUMBNESS/TINGLING TO EXTREMITIES. REQUESTED/GIVEN PILLOWS FOR R LE STUMP.
[2020-09-03 00:30] VITALS: BP 106/49; PULSE 66; TEMP 97.2
[2020-09-03 04:06] VITALS: BP 137/70; PULSE 66; TEMP 97.3
[2020-09-03 07:26] LABS: HEMOGLOBIN 10.2 g/dl (13.5-18.0); MEAN CELL VOLUME 84 fl (80.0-100.0); MEAN CORPUSCULAR HEMOGLOBIN 27 pg (27.0-31.0); MEAN CORPUSCULAR HGB CONC 32 g/dl (33.0-37.0); MEAN PLATELET VOLUME 9.9 fl (7.4-10.4); PLATELET COUNT 250 K/mm3 (130-400); RED BLOOD COUNT 3.78 M/mm3 (4.20-5.60); REDCELL DISTRIBUTION WIDTH-CV 13.6 % (11.5-14.5)
[2020-09-03 07:30] LABS: HEMATOCRIT 31.6 % (42.0-52.0)
[2020-09-03 07:39] LABS: CALCIUM 8.8 mg/dL (8.4-10.2); CREATININE, serum 1.01 (0.66-1.25); POTASSIUM 4.5 mmol/L (3.4-5.0)
--- NOTE | 2020-09-03 07:39 | NUR ---
CHANGE OF SHIFT REPORT GIVEN TO DAY SHIFT NURSEJAMIL.
[2020-09-03 07:50] VITALS: BP 155/84; PULSE 80
[2020-09-03 08:55] LABS: BAND 5 % (0-10); EOSINOPHIL 2 % (0-4); LYMPHOCYTE 19 % (20.0-51.0); METAMYELOCYTE 1 % (0-0); NEUTROPHILS 65 % (42.0-75.2); PLATELET ESTIMATE NORMAL (NORMAL)
[2020-09-03] MEDS ORDERED: LIPITOR 40MG TA40 MG PO (11:23)
[2020-09-03] MEDS ORDERED: IPRATROPIUM BROM3 M1 IH (11:23)
[2020-09-03] MEDS ORDERED: TYLENOL 325MG325 MG PO (11:36)
[2020-09-03] MEDS ORDERED: ROXICODONE 55 MG/TAB PO ×2 (11:39→15:15)
[2020-09-03 12:07] VITALS: BP 135/64; PULSE 66
--- NOTE | 2020-09-03 12:31 | NUR ---
Patient alert and oriented, answers questions appropriately. See assessment. RLE with dressing CDI, no redness noted on dressing borders. No c/o numbness to RLE, c/o pain 12/29. No other c/o at this time.
--- NOTE | 2020-09-03 13:41 | NUR ---
Report given to NAA Alexander RN.
[2020-09-03 13:45] VITALS: BP 135/64; PULSE 66; TEMP 97.3
[2020-09-03] MEDS ORDERED: LANTUS100 U/ML (13:49)
--- NOTE | 2020-09-03 14:19 | NUR ---
Patient transferred to [facility] at 1410. Belongings sent with patient.
== END 2020-09-03 14:10 | DRG 617 ==
LOC: COL.ER 20:44 → MEDICAL 22:11 → ICU 22:11 → MEDICAL 23:59 → JCC 09-01 08:31 → ICU 09-01 23:23 → SURG 09-02 13:29
PROVIDERS: Emergency Medicine; Hospitalist; Nurse Practitioner Family; Orthopaedic Surgery; Physician Assistant; Registered Nurse; ADMIT Internal Medicine
PROC: 0Y6H0Z1 Detachment at Right Lower Leg, High, Open Approach (ICD-10-PCS; principal; 2020-09-01 07:30)
DX: E11.622 Type 2 diabetes mellitus with other skin ulcer (principal); E87.1 Hypo-osmolality and hyponatremia; M86.8X8 Other osteomyelitis, other site; I47.1 Supraventricular tachycardia; G62.9 Polyneuropathy, unspecified; E66.9 Obesity, unspecified; E78.5 Hyperlipidemia, unspecified; F17.210 Nicotine dependence, cigarettes, uncomplicated; E87.6 Hypokalemia; F32.9 Major depressive disorder, single episode, unspecified; I25.10 Atherosclerotic heart disease of native coronary artery without angina pectoris; E11.69 Type 2 diabetes mellitus with other specified complication; E11.42 Type 2 diabetes mellitus with diabetic polyneuropathy; E87.5 Hyperkalemia; Z79.82 Long term (current) use of aspirin; Z95.1 Presence of aortocoronary bypass graft; Z79.4 Long term (current) use of insulin; Z87.311 Personal history of (healed) other pathological fracture; Z68.32 Body mass index [BMI] 32.0-32.9, adult
CPT/HCPCS: 99223-AI; 99231-AI; 99232-AI; 99239; G0378; J0360; J0690; J0692; J1170; J1815; J1940; J2250; J2405; J2704; J3010; J3475; J3480; J7030; J7042

== ENCOUNTER 2020-09-03 11:21 | Inpatient (IN) | payer MEDICARE, BC ==
[~2020-09-03] VITALS: Ht 182.9 cm; Wt 110.6 kg
[~2020-09-03 11:21] MED LIST changes: +FLAGYL500 MG PO; +GLUCOPHAGE XR500 M1 PO; +MOTRIN 200200 MG/TAB PO
[2020-09-03] MEDS ORDERED: IPRATROPIUM BROM3 M1 IH (11:23)
[2020-09-03] MEDS ORDERED: LIPITOR 40MG TA40 MG PO (11:23)
[2020-09-03] MEDS ORDERED: TYLENOL 325MG325 MG PO (11:36)
[2020-09-03] MEDS ORDERED: ROXICODONE 55 MG/TAB PO ×2 (11:39→15:15)
[2020-09-03] MEDS ORDERED: LANTUS100 U/ML (13:49)
[2020-09-03 16:56] VITALS: BP 107/52; PULSE 65; TEMP 97.7
[2020-09-04 06:12] VITALS: BP 138/64; PULSE 68; TEMP 97.7
[2020-09-04 16:48] VITALS: BP 118/57; PULSE 72; TEMP 98.4
[2020-09-05 04:52] VITALS: BP 111/54; PULSE 70; TEMP 98
[2020-09-05 09:51] VITALS: BP 134/47; PULSE 68; TEMP 97.5
[2020-09-05 18:00] VITALS: BP 140/50; PULSE 73; TEMP 98.4
[2020-09-06 05:17] VITALS: BP 164/69; PULSE 70; TEMP 98.1
[2020-09-06 17:11] VITALS: BP 167/68; PULSE 68; TEMP 97.8
[2020-09-07 06:23] VITALS: BP 151/63; PULSE 66; TEMP 98.3
[2020-09-07 18:00] VITALS: BP 149/54; PULSE 73; TEMP 98.1
[2020-09-08 05:39] VITALS: BP 177/81; PULSE 66; TEMP 97.6
[2020-09-08 17:49] VITALS: BP 159/72; PULSE 74; TEMP 98.1
[2020-09-09 05:12] VITALS: BP 119/66; PULSE 77; TEMP 98.6
[2020-09-09] MEDS ORDERED: ROXICODONE 55 MG/TAB PO (12:18)
[2020-09-09 16:57] VITALS: BP 163/70; PULSE 79; TEMP 98
[2020-09-10 06:09] VITALS: BP 134/55; PULSE 80; TEMP 97.7
== END 2020-09-10 11:00 | disposition home health service (06) | DRG 948 ==
PROVIDERS: ADMIT Internal Medicine
DX: R53.81 Other malaise (principal); M86.9 Osteomyelitis, unspecified; E87.1 Hypo-osmolality and hyponatremia; I47.1 Supraventricular tachycardia; E11.69 Type 2 diabetes mellitus with other specified complication; E11.40 Type 2 diabetes mellitus with diabetic neuropathy, unspecified; E11.621 Type 2 diabetes mellitus with foot ulcer; S92.001D Unspecified fracture of right calcaneus, subsequent encounter for fracture with routine healing; I25.10 Atherosclerotic heart disease of native coronary artery without angina pectoris; D64.9 Anemia, unspecified; E87.5 Hyperkalemia; I10 Essential (primary) hypertension; E66.9 Obesity, unspecified; F32.9 Major depressive disorder, single episode, unspecified; Z68.33 Body mass index [BMI] 33.0-33.9, adult; E78.5 Hyperlipidemia, unspecified; X58.XXXD Exposure to other specified factors, subsequent encounter; Z79.4 Long term (current) use of insulin; Z79.82 Long term (current) use of aspirin; Z79.891 Long term (current) use of opiate analgesic; Z89.511 Acquired absence of right leg below knee; Z95.1 Presence of aortocoronary bypass graft; Z95.5 Presence of coronary angioplasty implant and graft; Z88.0 Allergy status to penicillin; Z87.891 Personal history of nicotine dependence
CPT/HCPCS: 99222-AI; 99231-AI; 99232-AI; 99239; J1815; J2997

== ENCOUNTER 2020-09-13 18:23 | Emergency (ER) | payer MEDICARE, BC ==
[~2020-09-13] VITALS: Ht 182.9 cm; Wt 109.1 kg
[~2020-09-13 18:23] MED LIST changes: +IPRATROPIUM BROM3 M1 IH; +LANTUS100 U/ML; +LIPITOR 40MG TA40 MG PO; +ROXICODONE 55 MG/TAB PO; +TYLENOL 325MG325 MG PO
[2020-09-13 18:43] VITALS: TEMP 98.5
[2020-09-13 20:00] VITALS: BP 177/90; PULSE 79
== END 2020-09-13 20:00 | disposition home or self-care (01) ==
LOC: COL.ER 18:23
DX: T87.89 Other complications of amputation stump (principal); I10 Essential (primary) hypertension; E11.9 Type 2 diabetes mellitus without complications; I25.2 Old myocardial infarction; I25.10 Atherosclerotic heart disease of native coronary artery without angina pectoris; Z88.0 Allergy status to penicillin; Z79.4 Long term (current) use of insulin; Z79.82 Long term (current) use of aspirin

== ENCOUNTER 2020-12-19 13:51 | Inpatient (IN) | payer MEDICARE, BC ==
[~2020-12-19] VITALS: Ht 182.9 cm; Wt 109.1 kg
[2020-12-19 14:58] LABS: HEMATOCRIT 38.7 % (42.0-52.0); HEMOGLOBIN 12.8 g/dl (13.5-18.0); MEAN CELL VOLUME 83 fl (80.0-100.0); MEAN CORPUSCULAR HEMOGLOBIN 28 pg (27.0-31.0); MEAN CORPUSCULAR HGB CONC 33 g/dl (33.0-37.0); MEAN PLATELET VOLUME 10.5 fl (7.4-10.4); PLATELET COUNT 174 K/mm3 (130-400); RED BLOOD COUNT 4.64 M/mm3 (4.20-5.60); REDCELL DISTRIBUTION WIDTH-CV 14.4 % (11.5-14.5)
[2020-12-19 15:07] LABS: ALBUMIN 3.9 gm/dL (3.5-5.0); BILIRUBIN,TOTAL 0.8 mg/dL (0.0-1.0); CALCIUM 9.1 mg/dL (8.4-10.2); CREATININE, serum 1.48 (0.66-1.25); TOTAL PROTEIN 7.5 gm/dL (6.4-8.2)
[2020-12-19 15:19] LABS: BAND 1 % (0-10); LYMPHOCYTE 8 % (20.0-51.0); NEUTROPHILS 78 % (42.0-75.2); PLATELET ESTIMATE NORMAL (NORMAL)
[2020-12-19 15:20] LABS: C-REACTIVE PROTEIN 26.9 mg/dL (0.0-0.9)
[2020-12-19 16:41] LABS: COLLECTION METHOD CLEAN CATCH
[2020-12-19 16:48] LABS: PH 6 (5-8); SQUAMOUS EPITHELIAL 0-2 /hpf; URINE APPEARANCE Clear; URINE BACTERIA None Seen /hpf; URINE BILIRUBIN Negative (NEGATIVE); URINE BLOOD Negative (NEGATIVE); URINE COLOR Yellow; URINE GLUCOSE Negative (NEGATIVE); URINE KETONE Negative (NEGATIVE); URINE LEUKOCYTE ESTERASE Negative (NEGATIVE); URINE NITRATE Negative (NEGATIVE); URINE PROTEIN(semi-quant) 2+ (NEGATIVE); URINE RBC 0-2 /hpf; URINE UROBILINOGEN Negative (NEGATIVE)
[2020-12-19 19:35] VITALS: BP 143/65; PULSE 97; TEMP 98.4
[2020-12-19] MEDS ORDERED: PERCOCET 325 MG1 TA2 PO (19:40)
[2020-12-19] MEDS ORDERED: TYLENOL 325MG325 MG PO (19:41)
[2020-12-19] MEDS ORDERED: MOTRIN 600600 MG/TAB PO (19:42)
[2020-12-19] MEDS ORDERED: FLAGYL500 MG PO (21:40)
[2020-12-19] MEDS ORDERED: LEVAQUIN 750MG750 M1 PO (21:40)
[2020-12-19 22:00] VITALS: BP 153/86; PULSE 84; TEMP 98.3
[2020-12-19 22:03] VITALS: BP 153/86; PULSE 83; TEMP 98.3
[2020-12-20] VITALS (16 sets, daily range): BP systolic 111–155; BP diastolic 55–78; PULSE 70–84; TEMP 97.5–98.8
[2020-12-20 06:22] LABS: HEMOGLOBIN 11.5 g/dl (13.5-18.0); MEAN CELL VOLUME 85 fl (80.0-100.0); MEAN CORPUSCULAR HEMOGLOBIN 28 pg (27.0-31.0); MEAN CORPUSCULAR HGB CONC 33 g/dl (33.0-37.0); MEAN PLATELET VOLUME 10.1 fl (7.4-10.4); PLATELET COUNT 149 K/mm3 (130-400); RED BLOOD COUNT 4.16 M/mm3 (4.20-5.60); REDCELL DISTRIBUTION WIDTH-CV 14.4 % (11.5-14.5)
[2020-12-20 06:32] LABS: ALBUMIN 3.5 gm/dL (3.5-5.0); BILIRUBIN,TOTAL 0.5 mg/dL (0.0-1.0); CALCIUM 8.8 mg/dL (8.4-10.2); CREATININE, serum 1.83 (0.66-1.25); HEMATOCRIT 35.3 % (42.0-52.0); POTASSIUM 5.6 mmol/L (3.4-5.0); TOTAL PROTEIN 6.9 gm/dL (6.4-8.2)
--- NOTE | 2020-12-20 07:02 | NUR ---
Patient arrived to the floor at 2235 on 12/19/20. Patient alert and oriented x's 4, denies n/v or pain at this time.
[2020-12-20 07:09] LABS: BAND 1 % (0-10); LYMPHOCYTE 6 % (20.0-51.0); METAMYELOCYTE 3 % (0-0); NEUTROPHILS 89 % (42.0-75.2); PLATELET ESTIMATE NORMAL (NORMAL)
[2020-12-20 07:10] LABS: ANISOCYTOSIS 1+
--- NOTE | 2020-12-20 11:01 | NUR ---
First visit from the resource conservation specialist. No needs right now.
--- NOTE | 2020-12-20 13:16 | NUR ---
Cuff Cutter met with patient to discuss discharge planning. Patient lives in [place] with his , Constance (ph#[phone]) and sees Dr. Montalvo for primary care. Patient obtains medications from [facility] with no difficulties. Patient has a cane, walker, wheelchair, bedside commode, and leg prosthetic. Patient reports he mostly uses the cane but has the walker and wheelchair if needed. Patient states he is looking to get a four wheeled scooter to make getting into his bathroom easier. Patient states he is able to get in and out of his whirlpool tub independently at this time. Patient reports independence with ADLS. Patient states he has DPOA-HC that designates his . Patient states Dr. Montalvo's office should have it. Patient plans to return home upon discharge. Following intake, DAI contacted patient's , Constance who reports no concerns about patient returning home at this time. DAI then contacted DAI Garza at Dr. Montalvo's office who advised she would email DAI a copy of DPOA-HC documents. DAI will continue to follow.
--- NOTE | 2020-12-20 15:01 | NUR ---
Wrapping Machine Tender recevied a copy of patient's DPOA-HC and placed a copy on patient's chart.
[2020-12-20 15:52] LABS: CALCIUM 8.7 mg/dL (8.4-10.2); CREATININE, serum 1.92 (0.66-1.25); POTASSIUM 5.2 mmol/L (3.4-5.0)
[2020-12-21 00:16] VITALS: BP 111/61; PULSE 75; TEMP 98.2
[2020-12-21 04:00] VITALS: BP 132/72; PULSE 65; TEMP 97.8
[2020-12-21 07:20] VITALS: BP 129/62; PULSE 67; TEMP 97.6
[2020-12-21 07:21] LABS: HEMOGLOBIN 10.6 g/dl (13.5-18.0); MEAN CELL VOLUME 83 fl (80.0-100.0); MEAN CORPUSCULAR HEMOGLOBIN 28 pg (27.0-31.0); MEAN CORPUSCULAR HGB CONC 33 g/dl (33.0-37.0); MEAN PLATELET VOLUME 10.8 fl (7.4-10.4); PLATELET COUNT 166 K/mm3 (130-400); RED BLOOD COUNT 3.83 M/mm3 (4.20-5.60); REDCELL DISTRIBUTION WIDTH-CV 14.3 % (11.5-14.5)
[2020-12-21 07:27] LABS: HEMATOCRIT 31.9 % (42.0-52.0)
[2020-12-21 07:32] LABS: ALBUMIN 3.2 gm/dL (3.5-5.0); BILIRUBIN,TOTAL 0.3 mg/dL (0.0-1.0); CALCIUM 8.5 mg/dL (8.4-10.2); CREATININE, serum 1.96 (0.66-1.25); POTASSIUM 4.4 mmol/L (3.4-5.0); TOTAL PROTEIN 6.4 gm/dL (6.4-8.2)
[2020-12-21 09:10] LABS: BAND 4 % (0-10); LYMPHOCYTE 12 % (20.0-51.0); NEUTROPHILS 70 % (42.0-75.2)
[2020-12-21 09:11] LABS: PLATELET ESTIMATE NORMAL (NORMAL)
[2020-12-21 10:20] VITALS: BP 143/64; PULSE 85; TEMP 97.3
--- NOTE | 2020-12-21 10:52 | NUR ---
Shift assessment completed. Pt rates pain 4/10 when still, 7/10 with movement. Pain is localized in the suprapubic area and occasional phantom limb pain. Pt has a TREE drain with pink tinged drainage. IV with NS, no infiltration or phlebitis.
[2020-12-21 15:46] VITALS: BP 155/74; PULSE 78; TEMP 98.2
[2020-12-21 19:55] VITALS: BP 192/84; PULSE 86; TEMP 98.6
[2020-12-22 00:33] VITALS: BP 148/71; PULSE 77; TEMP 97.5
[2020-12-22 05:09] VITALS: BP 141/55; PULSE 93; TEMP 97.7
[2020-12-22 07:06] LABS: MEAN CELL VOLUME 85 fl (80.0-100.0); MEAN CORPUSCULAR HEMOGLOBIN 27 pg (27.0-31.0); MEAN CORPUSCULAR HGB CONC 32 g/dl (33.0-37.0); MEAN PLATELET VOLUME 10.7 fl (7.4-10.4); PLATELET COUNT 175 K/mm3 (130-400); RED BLOOD COUNT 4.02 M/mm3 (4.20-5.60); REDCELL DISTRIBUTION WIDTH-CV 14.3 % (11.5-14.5)
[2020-12-22 07:31] LABS: CALCIUM 8.2 mg/dL (8.4-10.2); CREATININE, serum 1.9 (0.66-1.25); POTASSIUM 4.8 mmol/L (3.4-5.0)
[2020-12-22 08:00] VITALS: BP 126/83; PULSE 75; TEMP 97.7
--- NOTE | 2020-12-22 08:00 | NUR ---
Patient sitting up at edge of bed, starting to eat breakfast. Alert & oriented. He is wanting to administer his own insulin. He is concerned about resuming his metformin. Did speak to Marisa Lou about it this am, but hold due to kidney function. Patient also wanting to prevent a low blood sugar on labs this am, blood sugar was 74. Patient abdomen bruised & TREE drain to compression. Purlent drainage noted. Ivf per orders. Water restriction, he is drinkning gatorade. Will monitor.
[2020-12-22 08:49] LABS: BAND 7 % (0-10); LYMPHOCYTE 14 % (20.0-51.0); NEUTROPHILS 68 % (42.0-75.2); PLATELET ESTIMATE NORMAL (NORMAL)
--- NOTE | 2020-12-22 10:03 | NUR ---
Patient lying back in bed. Patient reports pain medication helped with pain. I offered to assist with hygiene. Reports his will be here to help him & or he wants to wait till he gets home. Will offer again later.
[2020-12-22 12:22] VITALS: BP 131/66; PULSE 70; TEMP 98.2
--- NOTE | 2020-12-22 14:06 | NUR ---
rounded. Patient 2 assist up to the chair. Pain increased, percocet per request. We discussed his bowels, he reports passing flatus, no urge to have BM. Odor noted. New linens to bed. He reports his assisted with hygiene. Iv to INT. Will monitor
[2020-12-22 15:54] VITALS: BP 136/68; PULSE 73; TEMP 98.5
--- NOTE | 2020-12-22 16:13 | NUR ---
Patient continues to sit up in chair. Repositioned with pillows. Attentive at bedside. Jello & pudding provided. Delta leach
--- NOTE | 2020-12-22 18:52 | NUR ---
Patient sitting up in chair. Eating dinner. refused insulin. Will report off to night nurse
[2020-12-22 20:20] VITALS: BP 163/61; PULSE 76; TEMP 99.4
[2020-12-23 00:24] VITALS: BP 134/74; PULSE 68; TEMP 99
[2020-12-23 05:40] VITALS: BP 140/65; PULSE 74; TEMP 98
--- NOTE | 2020-12-23 05:49 | NUR ---
Pt asymptomatic after 59mg/dL blood sugar. Pudding provided. Pt called in breakfast order
[2020-12-23 06:28] LABS: HEMOGLOBIN 11.5 g/dl (13.5-18.0); MEAN CELL VOLUME 83 fl (80.0-100.0); MEAN CORPUSCULAR HEMOGLOBIN 27 pg (27.0-31.0); MEAN CORPUSCULAR HGB CONC 33 g/dl (33.0-37.0); MEAN PLATELET VOLUME 10.3 fl (7.4-10.4); PLATELET COUNT 221 K/mm3 (130-400); RED BLOOD COUNT 4.22 M/mm3 (4.20-5.60); REDCELL DISTRIBUTION WIDTH-CV 14.1 % (11.5-14.5)
[2020-12-23 06:38] LABS: ALBUMIN 3.1 gm/dL (3.5-5.0); BILIRUBIN,TOTAL 0.4 mg/dL (0.0-1.0); CALCIUM 8.8 mg/dL (8.4-10.2); CREATININE, serum 1.59 (0.66-1.25); POTASSIUM 4.6 mmol/L (3.4-5.0); TOTAL PROTEIN 6.4 gm/dL (6.4-8.2)
[2020-12-23 07:19] LABS: BAND 16 % (0-10); EOSINOPHIL 2 % (0-4); LYMPHOCYTE 15 % (20.0-51.0); NEUTROPHILS 61 % (42.0-75.2)
[2020-12-23 07:20] LABS: PLATELET ESTIMATE NORMAL (NORMAL)
--- NOTE | 2020-12-23 08:00 | NUR ---
Assessment completed, alert/oriented, vital signs stable, had low grade elevation overnight, WBC went up to 15.9 on this morning labs, Levaquin has been added to EMAR by physician, patient reports moderate pain but is over all under controll, abdomen is soft and BS+/ reports passing flatus but not had a BM yet, TREE drain has has moderate amount of milky/ purulent drainage, he has been up with assistance and doing fair, heart RRR, lungS CTA and no resp.difficulty noted, encouraged deep breathing and use of IS as ordered, he is sitting at edge of bed and has ate his breakfast, fsbs was 59 this morning and his Levemir was given but held Novolog, denies other needs at this time
[2020-12-23 11:28] VITALS: BP 134/62; PULSE 69; TEMP 98
--- NOTE | 2020-12-23 11:36 | NUR ---
Research Professor met with patient and patient's to review discharge plan. SW reviewed PT recommendation for Home Health vs outpatient PT/OT. Patient states he already is set up with outpatient therapy at [facility] on [address] and does not need any further assistance from DAI at this time.
[2020-12-23 16:14] VITALS: BP 145/77; PULSE 76; TEMP 98
[2020-12-23 19:23] VITALS: BP 157/70; PULSE 77; TEMP 98.2
--- NOTE | 2020-12-23 19:50 | NUR ---
RECEIVED CHANGE OF SHIFT REPORT FROM DAY SHIFT NURSE.
--- NOTE | 2020-12-23 20:00 | NUR ---
TELE IN PLACE. DENIES ANY NEEDS AT THIS TIME.
[2020-12-24 00:58] VITALS: BP 145/71; PULSE 67; TEMP 97.8
--- NOTE | 2020-12-24 03:37 | NUR ---
INFORMED ONCALL HOSP PROVIDER OF IV OUT, OK TO HAVE IV LEFT OUT BUT CONTINUE ON TELE AT THIS TIME. PATIENT EXPECTING TO BE DISCHARGED TODAY.
[2020-12-24 04:11] VITALS: BP 157/73; PULSE 67; TEMP 98.2
[2020-12-24 06:48] LABS: HEMOGLOBIN 11.7 g/dl (13.5-18.0); MEAN CELL VOLUME 84 fl (80.0-100.0); MEAN CORPUSCULAR HEMOGLOBIN 27 pg (27.0-31.0); MEAN CORPUSCULAR HGB CONC 32 g/dl (33.0-37.0); MEAN PLATELET VOLUME 10.2 fl (7.4-10.4); PLATELET COUNT 231 K/mm3 (130-400); REDCELL DISTRIBUTION WIDTH-CV 14.3 % (11.5-14.5)
[2020-12-24 07:01] LABS: ALBUMIN 3.3 gm/dL (3.5-5.0); BILIRUBIN,TOTAL 0.4 mg/dL (0.0-1.0); CALCIUM 8.8 mg/dL (8.4-10.2); CREATININE, serum 1.36 (0.66-1.25); POTASSIUM 4.4 mmol/L (3.4-5.0); TOTAL PROTEIN 6.5 gm/dL (6.4-8.2)
[2020-12-24 07:05] LABS: HEMATOCRIT 36.2 % (42.0-52.0)
[2020-12-24 07:29] LABS: ANISOCYTOSIS 1+; BAND 4 % (0-10); EOSINOPHIL 1 % (0-4); LYMPHOCYTE 2 % (20.0-51.0); MYELOCYTE 1 % (0-0); NEUTROPHILS 82 % (42.0-75.2); PLATELET ESTIMATE NORMAL (NORMAL)
--- NOTE | 2020-12-24 07:30 | NUR ---
CHANGE OF SHIFT REPORT GIVEN TO DAY SHIFT NURSECAROLA RN.
--- NOTE | 2020-12-24 08:10 | NUR ---
Patient sitting up at edge of bed, he just finished breakfast. I spoke to on the phone this am, plan for CT scan without contrast due to elevated WBC. I instructed patient to keep NPO until they finish scan. Stefan drain Stripped, couple mls of purulent drainage emptied. Patient reports abdominal pain. Patient did not require insulin this am. Bowels audible. voiding adequately. Called CT will awit for scan to be resulted.
[2020-12-24 08:18] VITALS: BP 139/60; PULSE 70; TEMP 97.5
--- NOTE | 2020-12-24 10:57 | NUR ---
TREE to bulb suction removed per protocol, suture cut, pressure held, drain pulled, pt tolerated very well.
[2020-12-24 11:54] VITALS: BP 144/59; PULSE 62; TEMP 97.3
--- NOTE | 2020-12-24 12:53 | NUR ---
Patient ready for discharge. Dr.Wolfe mandujanod discharge. We discussed CT scan. Patient & patient given all discharge instructions. We reviewed incision cares & TREE drain site cares. We discussed signs & symptoms of infection reviewed. Scripts were faxed to pharmacy of choice. We reviewed all medications & last dose taken. Denies questions. Patient glad to be going home. he was wheeled out with all belongings. He refused lunch or insulin wanting to get home. One tab percocet per request prior to discharge home.
== END 2020-12-24 13:02 | disposition home or self-care (01) | DRG 339 ==
LOC: COL.ER 13:51 → SURG 19:08
PROVIDERS: Family Medicine; Hospitalist; Physician Assistant; Student in an Organized Health Care Education/Training Program; ADMIT Surgery
PROC: 0DTJ4ZZ Resection of Appendix, Percutaneous Endoscopic Approach (ICD-10-PCS; principal; 2020-12-19 19:45)
DX: K35.32 Acute appendicitis with perforation, localized peritonitis, and gangrene, without abscess (principal); E87.1 Hypo-osmolality and hyponatremia; N17.9 Acute kidney failure, unspecified; I47.1 Supraventricular tachycardia; I25.10 Atherosclerotic heart disease of native coronary artery without angina pectoris; E66.9 Obesity, unspecified; F32.9 Major depressive disorder, single episode, unspecified; E11.51 Type 2 diabetes mellitus with diabetic peripheral angiopathy without gangrene; E11.22 Type 2 diabetes mellitus with diabetic chronic kidney disease; N18.9 Chronic kidney disease, unspecified; I12.9 Hypertensive chronic kidney disease with stage 1 through stage 4 chronic kidney disease, or unspecified chronic kidney disease; E11.40 Type 2 diabetes mellitus with diabetic neuropathy, unspecified; D64.9 Anemia, unspecified; E87.5 Hyperkalemia; E78.5 Hyperlipidemia, unspecified; E11.649 Type 2 diabetes mellitus with hypoglycemia without coma; K59.00 Constipation, unspecified; Z79.4 Long term (current) use of insulin; Z95.0 Presence of cardiac pacemaker; Z95.5 Presence of coronary angioplasty implant and graft; Z95.1 Presence of aortocoronary bypass graft; Z79.82 Long term (current) use of aspirin; Z87.891 Personal history of nicotine dependence; Z88.0 Allergy status to penicillin; Z89.511 Acquired absence of right leg below knee; Z68.32 Body mass index [BMI] 32.0-32.9, adult
CPT/HCPCS: OP; 99223; 99232-AI; A9284; J0330; J1170; J1650; J1815; J1956; J2270; J2405; J2704; J3010; J7030; J7120; Q9967

== ENCOUNTER 2021-01-07 10:01 | Inpatient (IN) | payer MEDICARE, BC ==
[2021-01-07] VITALS (14 sets, daily range): BP systolic 99–157; BP diastolic 55–82; PULSE 63–83; TEMP 97.9–99.1
[~2021-01-07] VITALS: Ht 182.9 cm; Wt 128.4 kg
[~2021-01-07 10:01] MED LIST changes: +LEVAQUIN 750MG750 M1 PO; +MOTRIN 600600 MG/TAB PO; +PERCOCET 325 MG1 TA2 PO
--- NOTE | 2021-01-07 10:20 | NUR ---
Patient to room via wheelchair from admissions. Assisted into bed. Change into gown. [place] to room. Rates pain in right lower abd 7/10, describes as dull throb. Right lower abd with redness, cellulitis, and approx 1cm open area with purulent discharge. Reapply dressing to site. Assist patient to comfortable position.
[2021-01-07] MEDS ORDERED: ASPIRIN 32325 MG/TAB PO (10:29)
[2021-01-07] MEDS ORDERED: LASIX 40MG TABL40 MG PO (10:31)
[2021-01-07] MEDS ORDERED: LANTUS100 U/ML SQ (10:34)
--- NOTE | 2021-01-07 11:02 | NUR ---
Contact Dr. Munguia and provide update that patient is here. He will place orders at this time.
--- NOTE | 2021-01-07 11:38 | NUR ---
Review consent for possible drain placement while down getting CT by radiology. Patient verbalizes understanding, denies questions and signs consent. Consent placed on chart. Patient resting in bed watching TV. Denies additional needs at this time.
[2021-01-07 11:49] LABS: HEMOGLOBIN 10.3 g/dl (13.5-18.0); MEAN CELL VOLUME 84 fl (80.0-100.0); MEAN CORPUSCULAR HEMOGLOBIN 27 pg (27.0-31.0); MEAN CORPUSCULAR HGB CONC 32 g/dl (33.0-37.0); MEAN PLATELET VOLUME 9.7 fl (7.4-10.4); PLATELET COUNT 242 K/mm3 (130-400); RED BLOOD COUNT 3.83 M/mm3 (4.20-5.60); REDCELL DISTRIBUTION WIDTH-CV 13.9 % (11.5-14.5)
[2021-01-07 11:54] LABS: ALBUMIN 3.2 gm/dL (3.5-5.0); BILIRUBIN,TOTAL 0.2 mg/dL (0.0-1.0); CALCIUM 8.5 mg/dL (8.4-10.2); CREATININE, serum 1.31 (0.66-1.25); TOTAL PROTEIN 6.7 gm/dL (6.4-8.2)
[2021-01-07 11:56] LABS: INR 1.6 (0.8-3.0); PROTHROMBIN TIME 17.4 SECONDS (9.7-12.8)
[2021-01-07 12:17] LABS: EOSINOPHIL 2 % (0-4); HYPOCHROMIA 2+; LYMPHOCYTE 16 % (20.0-51.0); NEUTROPHILS 67 % (42.0-75.2); PLATELET ESTIMATE NORMAL (NORMAL)
--- NOTE | 2021-01-07 12:32 | NUR ---
Patient to CT via wheel chair at this time.
--- NOTE | 2021-01-07 14:10 | NUR ---
DRAIN PLACED. DRAIN ATTACHED TO PT CLOTHING WITH REMINDER TO BE CAREFUL OF DRAIN. REPORT CALLED TO STAFF, ALEE BACH
--- NOTE | 2021-01-07 14:20 | NUR ---
Patient returns to room from CT via wheelchair. Has drain to right lower quadrant. Patient says that he needs something to eat and would like jello. Provide jello. Patient will also call to order some food from the cafeteria. in room with the patient. Denies additional needs at this time.
--- NOTE | 2021-01-07 17:32 | NUR ---
Sitting up on edge of bed eating some jello. Pain is better at this time. Denies needs at this time.
[2021-01-08] VITALS (8 sets, daily range): BP systolic 111–150; BP diastolic 48–95; PULSE 57–79; TEMP 97.3–98.8
[2021-01-08 05:57] LABS: HEMOGLOBIN 10.6 g/dl (13.5-18.0); MEAN CELL VOLUME 84 fl (80.0-100.0); MEAN CORPUSCULAR HEMOGLOBIN 27 pg (27.0-31.0); MEAN CORPUSCULAR HGB CONC 32 g/dl (33.0-37.0); MEAN PLATELET VOLUME 9.6 fl (7.4-10.4); PLATELET COUNT 246 K/mm3 (130-400); RED BLOOD COUNT 3.96 M/mm3 (4.20-5.60); REDCELL DISTRIBUTION WIDTH-CV 13.9 % (11.5-14.5)
[2021-01-08 06:11] LABS: HEMATOCRIT 33.4 % (42.0-52.0)
[2021-01-08 06:12] LABS: ALBUMIN 3.2 gm/dL (3.5-5.0); BILIRUBIN,TOTAL 0.2 mg/dL (0.0-1.0); CALCIUM 8.4 mg/dL (8.4-10.2); CREATININE, serum 1.46 (0.66-1.25); POTASSIUM 4.9 mmol/L (3.4-5.0); TOTAL PROTEIN 6.8 gm/dL (6.4-8.2)
[2021-01-08 06:54] LABS: BAND 2 % (0-10); LYMPHOCYTE 6 % (20.0-51.0); NEUTROPHILS 80 % (42.0-75.2); PLATELET ESTIMATE NORMAL (NORMAL)
--- NOTE | 2021-01-08 07:45 | NUR ---
Patient sitting up in bed watching TV. A&Ox4. VSS. IV CDI, fluids infusing. Reporting pain in RLQ 5/10, pain medication given when requested. RLQ drain CDI, serosangous drainage. Mid lower abdominal abcess dressing purulent. No further needs expressed from the patient. Call light within reach
--- NOTE | 2021-01-08 12:14 | NUR ---
Patient refusing WBG checks. Patient understands the risk. No further needs expressed from the patient. Call light within reach
--- NOTE | 2021-01-08 15:14 | NUR ---
Plan to return home with Fabi [phone] Patient reports that he resides in [place], [place]. Patient reports that he has transportation home. Patient reports that he uses a cane for mobility and CPAP for oxygen. Patient shares that his PCP is Dr. Montalvo. Patient uses [facility] for medications. Denies having any need for HHS or skilled services. Patient reports that he does not have a DPOA. Educated on services available to him. No additional concerns at this time but will follow for care.
--- NOTE | 2021-01-08 18:01 | NUR ---
Patient had an uneventful day. Refused lunch WBG check, but allowed nursing staff to check dinner WBG. A&Ox4. VSS. IV CDI. Drain RLQ CDI. Mid lower abdominal dressing changed and CDI. Pain medication given when requested. No further needs expressed from the patient. Call light within reach
--- NOTE | 2021-01-08 18:56 | NUR ---
Awake, alert, sitting at bedside, expresses unhappiness with free water restriction, states refuses blood sugar at bedtime, denies need for pain medications at this time, atel 100% of dinner, drinking gatorade, drain to R lower quad intact draining bloody drainage, dressing to lower mid abdomen intact. Call el w/i reach
[2021-01-09 00:37] VITALS: BP 142/62; PULSE 70; TEMP 98.2
[2021-01-09 04:31] VITALS: BP 158/66; PULSE 75; TEMP 97.8
[2021-01-09 06:21] LABS: BASO % 0.3 % (0.0-2.0); EOS # 0.1 (0.0-0.7); EOS % 1.2 % (0-4.0); GRAN # 8.4 (1.4-6.5); GRAN % 72.7 % (42.2-75.2); LYMPH # 1.4 (1.2-3.4); LYMPH % 12.1 % (20.0-51.0); MEAN CELL VOLUME 84 fl (80.0-100.0); MEAN CORPUSCULAR HGB CONC 32 g/dl (33.0-37.0); MONO # 1.5 (0.1-0.6); PLATELET COUNT 200 K/mm3 (130-400); RED BLOOD COUNT 3.51 M/mm3 (4.20-5.60); REDCELL DISTRIBUTION WIDTH-CV 14.1 % (11.5-14.5)
[2021-01-09 06:31] LABS: HEMATOCRIT 29.5 % (42.0-52.0); HEMOGLOBIN 9.3 g/dl (13.5-18.0); MEAN CORPUSCULAR HEMOGLOBIN 26 pg (27.0-31.0)
[2021-01-09 06:32] LABS: CALCIUM 8.1 mg/dL (8.4-10.2); CREATININE, serum 1.62 (0.66-1.25); POTASSIUM 4.3 mmol/L (3.4-5.0)
[2021-01-09 07:21] VITALS: BP 125/61; PULSE 68; TEMP 98.2
--- NOTE | 2021-01-09 07:30 | NUR ---
Lying in bed with eyes open. Alert and oriented x4. Rates pain 5/10 to abd, administer Percocet as prescribed per patient request. Dressing to accordion drain site in right abd CDI. Accordion drain compressed, bloody drainage noted in bag and tubing. Dressing to right lower abd with purulent drainage noted on dressing, explain that we will change this dressing a little later. Patient sits up on edge of bed. Has ordered breakfast. Denies additional needs at this time.
--- NOTE | 2021-01-09 08:46 | NUR ---
Lying in bed with eyes open. Rates pain to abd 4/10, feels that it is still coming down. Drain to right abd flushed without difficulty. Accordion drain remains compressed. Bloody discharge noted in tubing and bag. Remove dressing to right lower abd, purulent discharge noted on dressing. Site cleaned and two 4x4's applied to site and reinforced with tape. Patient denies additional needs at this time.
--- NOTE | 2021-01-09 10:19 | NUR ---
SW spoke with patient's RN. Patient will not discharge today 01/09. Patient does have PT/OT ordered. Please see results.
[2021-01-09 11:37] VITALS: BP 125/71; PULSE 73; TEMP 98.1
--- NOTE | 2021-01-09 11:39 | NUR ---
Sitting up on edge of bed, talking with . Rates pain 4/10 in abd, denies need for pain medication. Drain compressed with bloody purulent drainage noted in bag. Patient refuses to have blood sugar checked and when asked if he wants insulin with lunch patient says no. Denies additional needs at this time.
[2021-01-09 15:38] VITALS: BP 151/74; PULSE 78; TEMP 98.4
--- NOTE | 2021-01-09 15:56 | NUR ---
Rating pain 4.5/10 in abd, would like pain medication. Administer Percocet as prescribed. Patient sitting on edge of bed talking with . Discuss with the patient that Heparin has been ordered, discuss importance, and how often he is scheduled to get it. Patient agrees at this time but says that he may refuse the injection at midnight. Will allow [place], to obtain blood sugar before supper. Dr. Melvin had removed dressing to low abd earlier. Site cleaned with NS and patted dry. Two 4x4's applied to site and reinforced with tape. Patient denies additional needs at this time.
--- NOTE | 2021-01-09 17:42 | NUR ---
Patient blood sugar 255. Discuss with the patient that with the Novolog sliding scale he would get 8units. Patient says that he was hoping that his blood sugar would elevate to prove a point and he does not want to take the insulin at this time. Patient says that they can recheck his blood sugar at around 2200 and he would decide further if he would take insulin at that time. Patient expresses that he is frustrated that it seems like the providers do not want to listen to what his regimen is and go with his routine and that he does not like that new medications are started and the provider did not discuss this with him. Ask patient if I could have the PA that is working Thais norman, come in and talk with him to see if there was something that could be done further. Patient agrees. Spoke with JOSE MARIA Plascencia, and she will go in and talk with the patient further.
--- NOTE | 2021-01-09 18:14 | NUR ---
JOSE MARIA Hanks, was in and spoke with the patient. Patient says that at this time he does not want to take insulin and that he will have the development advisor staff recheck his blood sugar later and they will work together at that time on what insulin is needed. Patient sitting on edge of bed eating dinner. Denies additional needs at this time.
--- NOTE | 2021-01-09 19:18 | NUR ---
Awake, alert, oriented x 4, able to clearly communicate all needs, expresses frustration with changes in medical care despite patient teaching, no s/s of hypo/hyper glycemia, drain to Rlower quad abdomen intact, mid lower abdomen dressing changed- purelent drainage noted, afebrile, will continue to monitor.
[2021-01-09 19:30] VITALS: BP 148/70; PULSE 80; TEMP 98.5
[2021-01-10 00:40] VITALS: BP 137/65; PULSE 60; TEMP 98.3
[2021-01-10 04:16] VITALS: BP 148/80; PULSE 67; TEMP 98.3
--- NOTE | 2021-01-10 04:47 | NUR ---
Awake, alert, ox 4, requested pain medication- given per MAR, denies any further requests, emptied drain to RLQ - darker blood than previous noted, no s/s of hypo/hyper glycemia, VS stable
[2021-01-10 06:26] LABS: BASO % 0.3 % (0.0-2.0); EOS # 0.2 (0.0-0.7); EOS % 1.9 % (0-4.0); GRAN # 7.9 (1.4-6.5); GRAN % 73.5 % (42.2-75.2); LYMPH # 1.3 (1.2-3.4); LYMPH % 11.6 % (20.0-51.0); MEAN CELL VOLUME 83 fl (80.0-100.0); MEAN CORPUSCULAR HGB CONC 32 g/dl (33.0-37.0); MONO # 1.3 (0.1-0.6); PLATELET COUNT 211 K/mm3 (130-400); RED BLOOD COUNT 3.56 M/mm3 (4.20-5.60); REDCELL DISTRIBUTION WIDTH-CV 13.8 % (11.5-14.5)
[2021-01-10 06:35] LABS: HEMATOCRIT 29.7 % (42.0-52.0); HEMOGLOBIN 9.5 g/dl (13.5-18.0); MEAN CORPUSCULAR HEMOGLOBIN 27 pg (27.0-31.0)
[2021-01-10 06:40] LABS: CALCIUM 8.6 mg/dL (8.4-10.2); CREATININE, serum 1.33 (0.66-1.25); POTASSIUM 4.5 mmol/L (3.4-5.0)
[2021-01-10 07:57] VITALS: BP 149/62; PULSE 68; TEMP 98.1
--- NOTE | 2021-01-10 08:02 | NUR ---
Patient in bed resting. Alert and oriented x 3. Assessment complete. Denies pain at this time. RLQ abcess drain noted, dressing is CDI. Accordian compressed, patient having dark brown/red drainage. RLE BKA noted. Denies furhter needs at this time.
--- NOTE | 2021-01-10 08:52 | NUR ---
Dr. Contreras in to see patient.
[2021-01-10 11:30] VITALS: BP 151/67; PULSE 67; TEMP 97.8
--- NOTE | 2021-01-10 12:04 | NUR ---
First visit from the sap bpc architect. No needs right now.
[2021-01-10] MEDS ORDERED: LEVAQUIN 750MG750 M1 PO (12:18)
[2021-01-10] MEDS ORDERED: PERCOCET 325 MG1 TA2 PO (12:18)
[2021-01-10] MEDS ORDERED: FLAGYL500 MG PO (12:18)
--- NOTE | 2021-01-10 13:20 | NUR ---
Discharge education provided to patient and spouse. Educated on continuing antibiotics and what medications to hold. Educated on drain care and recording output from drain. All questions answered. INT to right forarm discontinued, catheter tip intact. Denies furhter needs at this time. Patient dressed independently.
== END 2021-01-10 13:20 | disposition home or self-care (01) | DRG 372 ==
LOC: SURG 10:01
PROVIDERS: Physician Assistant; ADMIT Surgery
PROC: 0W9G30Z Drainage of Peritoneal Cavity with Drainage Device, Percutaneous Approach (ICD-10-PCS; principal; 2021-01-07)
DX: K65.1 Peritoneal abscess (principal); N17.9 Acute kidney failure, unspecified; E87.1 Hypo-osmolality and hyponatremia; E78.5 Hyperlipidemia, unspecified; I25.10 Atherosclerotic heart disease of native coronary artery without angina pectoris; E66.9 Obesity, unspecified; F32.9 Major depressive disorder, single episode, unspecified; D63.1 Anemia in chronic kidney disease; E11.42 Type 2 diabetes mellitus with diabetic polyneuropathy; E11.22 Type 2 diabetes mellitus with diabetic chronic kidney disease; N18.9 Chronic kidney disease, unspecified; I12.9 Hypertensive chronic kidney disease with stage 1 through stage 4 chronic kidney disease, or unspecified chronic kidney disease; F17.210 Nicotine dependence, cigarettes, uncomplicated; E87.5 Hyperkalemia; E11.65 Type 2 diabetes mellitus with hyperglycemia; Z90.49 Acquired absence of other specified parts of digestive tract; Z95.1 Presence of aortocoronary bypass graft; Z95.5 Presence of coronary angioplasty implant and graft; Z95.0 Presence of cardiac pacemaker; Z79.4 Long term (current) use of insulin; Z89.511 Acquired absence of right leg below knee; Z88.0 Allergy status to penicillin; Z88.8 Allergy status to other drugs, medicaments and biological substances; Z68.38 Body mass index [BMI] 38.0-38.9, adult
CPT/HCPCS: 99223; 99232-AI; J1170; J1644; J1815; J1956; J7030; Q9967

== ENCOUNTER 2021-02-11 11:15 | Outpatient (RCR) | payer MEDICARE, BC ==
[~2021-02-11 11:15] MED LIST changes: +LASIX 40MG TABL40 MG PO
== END 2021-02-13 | disposition home or self-care (01) ==
LOC: WSPT
DX: Z89.511 Acquired absence of right leg below knee (principal)

== ENCOUNTER 2021-08-04 08:30 | Outpatient (RCR) | payer MEDICARE, BC | END 2021-08-04 10:00 | disposition home or self-care (01) | LOC: WSPT 08:30 | DX: M79.605 Pain in left leg (principal) ==

== ENCOUNTER → 2021-08-04 | Outpatient (CLI) | payer MEDICARE, BC | LOC: COL.RAD 10:06 | DX: M79.605 Pain in left leg (principal) ==

== ENCOUNTER 2023-08-12 15:34 | Emergency (ER) | payer MEDICARE, BC ==
[~2023-08-12] VITALS: Ht 182.9 cm; Wt 113.6 kg
[~2023-08-12 15:34] MED LIST changes: +ADVIL200 MG PO; +CRESTOR5 MG PO; +CUBICIN 500MG500 MG IV; +DOXYCYCLINE 10100 MG PO; +INSULIN HUMA100 U/ML SQ; +K-DUR20 MEQ PO; +LEXAPRO20 MG PO; +MAXIPIME2 GM IJ; +NORVASC 10MG10 MG PO; +OMNICEF 300MG300 MG PO; +PEPCID 20MG TAB20 MG PO; +PRINIVIL20 MG PO; +REMERON 15M15 MG/TA1 PO; +ROCEPHIN 2GM VIAL21 IJ; +TAMIFLU 75MG75 MG PO; -TRULICITY0.75 MG/0. SQ; +TRULICITY1.5 MG/0.5 SQ; +VANCOCIN H125 MG/CAP PO; +ZOFRAN ODT4 MG PO
[2023-08-12 15:54] LABS: BASO # 0.1 K/mm3 (0.0-0.2); BASO % 0.4 % (0.0-2.0); EOS # 0.1 K/mm3 (0.0-0.7); EOS % 0.4 % (0.0-4.0); GRAN # 10.3 K/mm3 (1.4-6.5); GRAN % 77.8 % (42.2-75.2); HEMOGLOBIN 12.2 g/dl (13.5-18.0); LYMPH # 1.4 K/mm3 (1.2-3.4); LYMPH % 10.2 % (20.0-51.0); MEAN CELL VOLUME 83 fl (80.0-100.0); MEAN CORPUSCULAR HEMOGLOBIN 28 pg (27-31); MEAN CORPUSCULAR HGB CONC 33 g/dl (33.0-37.0); MEAN PLATELET VOLUME 10.1 fl (7.4-10.4); MONO # 1.4 K/mm3 (0.1-0.6); MONO % 10.8 % (1.7-9.3); PLATELET COUNT 150 K/mm3 (130-400); RED BLOOD COUNT 4.44 M/mm3 (4.20-5.60); REDCELL DISTRIBUTION WIDTH-CV 14.9 % (11.5-14.5)
[2023-08-12 15:55] LABS: HEMATOCRIT 36.9 % (42.0-52.0)
[2023-08-12 16:14] LABS: ALBUMIN 3.6 gm/dL (3.4-4.8); BILIRUBIN,TOTAL 0.6 mg/dL (0.2-1.2); CALCIUM 9.3 mg/dL (8.4-10.2); CREATININE, serum 1.5 mg/dL (0.72-1.25); POTASSIUM 3.9 mmol/L (3.5-4.5); TOTAL PROTEIN 7.6 gm/dL (6.2-8.1)
[2023-08-12 16:21] LABS: TROPONIN-I 17.895 ng/mL (0.00-0.033)
[2023-08-12 17:01] LABS: COLLECTION METHOD CLEAN CATCH
[2023-08-12 17:13] LABS: INR 1.3 (0.8-3.0); PROTHROMBIN TIME 14.5 SECONDS (9.7-12.8)
[2023-08-12 17:16] LABS: PARTIAL THROMBOPLASTIN TIME 34.2 SECONDS (26.0-37.0)
[2023-08-12] MEDS ORDERED: LEXAPRO 10MG10 MG PO (17:20)
[2023-08-12] MEDS ORDERED: NEURONTIN300 MG/CAP PO (17:22)
[2023-08-12 17:24] LABS: PH 5.5 (5.0-8.5); URINE APPEARANCE Clear (CLEAR/HAZY); URINE COLOR Yellow (YELLOW); URINE GLUCOSE Negative (NEGATIVE); URINE PROTEIN(semi-quant) 2+ (NEGATIVE)
[2023-08-12 17:25] LABS: SQUAMOUS EPITHELIAL 0-2 /hpf (0-10); URINE BLOOD TRACE-INTACT (NEGATIVE); URINE KETONE Negative (NEGATIVE); URINE NITRATE Negative (NEGATIVE); URINE RBC 0-2 /hpf (0-2); URINE UROBILINOGEN 0.2 E.U/dL (0.2-1.0)
[2023-08-12] MEDS ORDERED: LASIX 40MG TABL40 MG PO (17:25)
[2023-08-12] MEDS ORDERED: NOVOLOG 100U100 U/M1 SQ (17:26)
[2023-08-12 17:28] LABS: MEAN CELL VOLUME 81 fl (80.0-100.0); MEAN CORPUSCULAR HEMOGLOBIN 27 pg (27-31); MEAN CORPUSCULAR HGB CONC 34 g/dl (33.0-37.0); MEAN PLATELET VOLUME 10.6 fl (7.4-10.4); PLATELET COUNT 164 K/mm3 (130-400); RED BLOOD COUNT 4.39 M/mm3 (4.20-5.60); REDCELL DISTRIBUTION WIDTH-CV 14.7 % (11.5-14.5)
[2023-08-12 17:29] LABS: HEMATOCRIT 35.5 % (42.0-52.0)
[2023-08-12 19:08] VITALS: BP 167/94; PULSE 77; TEMP 98.1
== END 2023-08-12 19:23 | disposition short-term general hospital (02) ==
LOC: COL.ER 15:34
PROVIDERS: Emergency Medicine
DX: I21.4 Non-ST elevation (NSTEMI) myocardial infarction (principal); I13.0 Hypertensive heart and chronic kidney disease with heart failure and stage 1 through stage 4 chronic kidney disease, or unspecified chronic kidney disease; E11.22 Type 2 diabetes mellitus with diabetic chronic kidney disease; E11.40 Type 2 diabetes mellitus with diabetic neuropathy, unspecified; I50.1 Left ventricular failure, unspecified; N18.30 Chronic kidney disease, stage 3 unspecified; F17.200 Nicotine dependence, unspecified, uncomplicated; Z79.4 Long term (current) use of insulin; Z95.1 Presence of aortocoronary bypass graft
CPT/HCPCS: J1644; J1940